=== PATIENT | female | born 1950 | race Caucasian/White ===

== ENCOUNTER 2022-08-06 08:42 | Observation (INO) | payer OTHER ==
[2022-08-06 08:55] LABS: Absolute Lymphocytes (CBC) 1.2 K/uL (0.7-4.9); Hematocrit 34.5 % (36.0-45.0); Lymphocytes % 14.1 % (15.3-44.8); MCV 88.4 fL (80-100); MPV 6.9 fL (7.6-11.3)
[2022-08-06 08:58] LABS: Specific Gravity 1.014 (1.005-1.030); Urine Bacteria <20 /HPF (<20); Urine Bilirubin NEGATIVE (Negative); Urine Blood Negative (Negative); Urine Clarity Turbid (Clear); Urine Color Light-Yellow (Yellow); Urine Glucose NEGATIVE (Negative); Urine Protein NEGATIVE (Negative); Urine Urobilinogen Normal (Normal); Urine WBC Clump Rare /HPF (None Seen); Urine pH 6.5 (5.0-7.0)
[2022-08-06 09:05] LABS: Protime INR 0.98
[2022-08-06] MEDS ORDERED: CEFAZOLIN SODIUM 2 GM/VIAL ONE (09:06)
[2022-08-06] MEDS ORDERED: Ringers Lactate 1,000 ML IV ONE ×3 (09:06→12:57)
[2022-08-06 09:11] LABS: Potassium 3.9 mmol/L (3.5-5.1)
[2022-08-06] MEDS ORDERED: KETAMINE HCL 500 MG/5 ML VIAL ONE (09:34)
[2022-08-06] MEDS ORDERED: propofoL 200 MG/20 ML VIAL IV ONE (09:34)
[2022-08-06] MEDS ORDERED: dexAMETHasone 10 MG/ML VIAL ONE (09:35)
[2022-08-06] MEDS ORDERED: NS 0.9% VIAL 20 ML ONE (09:35)
[2022-08-06] MEDS ORDERED: ROCURONIUM 50 MG/5 ML VIAL IV ONE (09:35)
[2022-08-06] MEDS ORDERED: FENTANYL CITR 100 MCG/2 ML ONE ×2 (09:35→12:53)
[2022-08-06] MEDS ORDERED: LIDOCAINE 2% MPF 5 ML VIAL ONE (09:35)
[2022-08-06] MEDS ORDERED: ONDANSETRON 4 MG/2 ML VIAL ONE (09:35)
[2022-08-06] MEDS ORDERED: MIDAZOLAM HCL 2 MG/2 ML INJ ONE (09:35)
[2022-08-06] MEDS ORDERED: LIDOCAINE 1% W/EPI 1:100,000 30 ML VIAL ONE (10:24)
[2022-08-06] MEDS ORDERED: NA CHLORIDE 0.9% 100 ML IV ONE (10:24)
[2022-08-06] MEDS ORDERED: CEFAZOLIN SODIUM 1 GM/VIAL ONE (10:24)
[2022-08-06] MEDS: CEFAZOLIN SODIUM 1 GM/VIAL ONE ×2 (11:05→11:16)
[2022-08-06] MEDS ORDERED: EPHEDRINE SULF 50 MG/ML VIAL ONE (11:12)
[2022-08-06] MEDS: VASOPRESSIN 20 UNIT/ML VIAL ONE ×2 (11:19→11:32)
[2022-08-06] MEDS ORDERED: TIZANIDINE 4 MG TABLET PO PRN (14:47)
[2022-08-06] MEDS ORDERED: MEPERIDINE HCL 25 MG/ML SYR IV PRN (14:48)
[2022-08-06] MEDS ORDERED: PROMETHAZINE INJ 25 MG/ML AMP IV PRN (14:48)
[2022-08-06] MEDS ORDERED: ACETAMINOPHEN 500 MG TAB PO PRN (14:48)
--- NOTE | 2022-08-06 14:57 | P.BOP ---
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
[2022-08-06] MEDS ORDERED: MORPHINE 4 MG/ML SYR ONE (15:22)
--- OUTSIDE RECORDS SUMMARY | 2022-08-06 15:47 | XMS REPORT | Clinical Summary ---
:1950 Author Organization [facility] MD [facility] Address [address] [place] [address] Care Team Providers Name Role Phone Jennifer Smith MD Primary Care Provider Stephanie Madden MD Primary Care Provider Allergies No known active allergies Medications Medication Sig Dispensed Refills Start Date End Date Status cranberry extract Take 36 mg by 0 Active (Ellura) 200 mg cap mouth daily. nitrofurantoin Take 100 mg by 0 Active (MACRODANTIN) 100 mg mouth daily. capsule thyroid (ARMOUR Take 60 mg by 0 Active THYROID) 60 mg tablet mouth daily. losartan (COZAAR) 100 Take 100 mg by 0 Active mg tablet mouth daily. tiZANidine (ZANAFLEX) 4 Take 4 mg by 0 Active MG capsule mouth 3 (three) times a day as needed for muscle spasms. phentermine (ADIPEX-P) Take 37.5 mg by 0 Active 37.5 mg tablet mouth every morning before breakfast. montelukast (SINGULAIR) Take 10 mg by 0 Active 10 mg tablet mouth daily as needed. estradiol (ESTRACE) 0.1 Insert 1 g into 0 Active mg/g (0.01%) vaginal the vagina 3 cream (three) times a week Wednesday, Wednesday and Wednesday. red yeast rice 600 mg Take 600 mg by 0 Active cap mouth every 6 (six) hours. omega-3 fatty Take 1 g by mouth 0 Active acids/fish oil (fish every 6 (six) oil-omega-3 fatty hours. acids) 300-1,000 mg capsule multivitamin/iron/folic Take 1 capsule by 0 Active acid (CENTRUM WOMEN mouth daily. ORAL) Lactobac 66-Bifido Take 1 capsule by 0 Active 4-S.thermo (Advanced mouth daily. Probiotic-14) 3 billion cell cap hyoscyamine sulfate Dissolve 1 tablet 12 tablet 0 03/19/2022 Active (ANASPAZ) 0.125 mg (0.125 mg) on the disintegrating tongue every 8 tabletIndications: Mass (eight) hours as of urinary bladder needed for cramping. sulfamethoxazole-trimet Take 1 tablet by 6 tablet 0 2 Active hoprim (BACTRIM DS) 800 mouth twice mg-160 mg per daily. tabletIndications: Mass of urinary bladder Active Problems Problem Noted Date Mass of urinary bladder 03/17/2022 Overview: Added automatically from request for tatiana hawkins [id number] Encounters Date Type Specialty Care Team Description 03/27/2022 Orders Only Urology Arpita, Mass of urinary bladder ASHTYN Coon (Primary Dx) 03/20/2022 Surgery Ambulatory Surgery Sarah, CYSTOURET HROSCOPY WITH MD Jennifer FULGURATION AND /OR TREATMENT OF ME DIUM LESION(S) (2.0 TO 5.0 CM 03/20/2022 Anesthesia Event Ambulatory Surgery Ashlie Abraham MD 03/20/2022 Hospital Encounter Ambulatory Surgery Raven Smith s of urinary bladder MD Jennifer 03/20/2022 Travel 03/19/2022 Anesthesia Event Anesthesiology Rubens Claudio, FADUMO 03/19/2022 Hospital Encounter Vascular Access and Sarah, Procedures MD Demario Rodriguez Anjanette, FADUMO 03/19/2022 Hospital Encounter Radiology Sarah, Mass of u rinary bladder MD Jennifer 03/19/2022 Office Visit Urology Sarah, Mass of urinary bladder MD Jennifer (Primary Dx) 03/19/2022 Clinical Support Garry Smith, Suspected C OVID-19 (Primary Dx); MD Jennifer Mass of urinary bladder Gaetano Majano MA 03/19/2022 POEM Appointments Anesthesiology Sarah, Pre op c ardiovascular examination (Primary Dx); MD Jennifer Mass of urinary bladder 03/19/2022 NPR Patient Access Services 03/19/2022 Travel 03/17/2022 Orders Only Urology Arpita Mass of urinary bladder ASHTYN Coon (Primary Dx) 02/26/2022 Travel after 08/06/2021 Surgical History Surgery Date Site/Laterality Comments [place] CYSTOURETHROSCOPY,FULGUR 03/20/2022 Genitalia/N/A Proc edure: CYSTOURETHROSCOPY 2-5 CM LESN WITH FULGURATION AND/OR TREATMENT OF MED IUM LESION(S) (2.0 TO 5.0 CM; Surgeon: Jennifer Smith MD; Locat ion: [facility] OR; Service: UROLOGY [place] PELVIC EXAMINATION W 03/20/2022 Bladder/N/A Procedur e: PELVIC EXAMINATION ANESTH UNDER ANESTHESIA ; Surgeon: Jennifer Smith MD; Locat ion: [facility] OR; Service: UROLOGY Social History Tobacco Use Types Packs/Day Years Used Date Never Assessed Sex Assigned at Date Recorded Not on file Job Start Date Occupation Industry Not on file Not on file Not on file Obstetrics History Last Filed Vital Signs Vital Sign Reading Time Taken Comments Blood Pressure 119/65 03/20/2022 9:30 AM CDT Pulse 80 03/20/2022 9:30 AM CDT Temperature 36.6 C (97.9 F) 03/20/2022 9:53 AM CDT Respiratory Rate 16 03/20/2022 9:30 AM CDT Oxygen Saturation 99% 03/20/2022 9:30 AM CDT Inhaled Oxygen Concentration - - Weight 103 kg (227 lb 1.2 oz) 03/19/2022 12:43 PM CDT Height 168 cm (5' 6.14") 03/19/2022 12:43 PM CDT Body Mass Index 36.49 03/19/2022 12:43 PM CDT Plan of Treatment Date Type Specialty Care Team Description 03/25/2023 Procedure visit Urology Jennifer Smith MD [address], [place] [address] (Wo rk) Health Maintenance Due Date Last Done Comments COVID-19 Vaccination (#1) 06/06/1951 Procedures Procedure Name Priority Date/Time Associated Comments Diagnosis POC GLUCOSE SCREEN Routine 03/20/2022 8:34 AM Res ults for this CDT procedure are i n the results section. PATHOLOGY SURGICAL Routine 03/20/2022 8:17 AM Mass of urinary Results for this INTERPRETATION CDT bladder procedure are in the results section. POC GLUCOSE SCREEN Routine 03/20/2022 7:56 AM Res ults for this CDT procedure are i n the results section. PELVIC EXAMINATION 03/20/2022 7:44 AM Mass of urinary UNDER ANESTHESIA CDT bladder Special Needs VS [address] [facility] CYSTOURETHROSCOPY WITH FULGURATION 03/20/2022 7: 44 AM CDT Mass of urinary bladder AND/OR TREATMENT OF MEDIUM LESION(S) (2.0 TO 5.0 CM Special Needs VS [address] [facility] [address] CHEST ABDOMEN PELVIS W Routine 03/19/2022 8:38 PM Mass of u rinary Results for this WO CONTRAST UROGRAM CDT bladder procedur e are in the results section. COVID-19 (SARS-COV-2) Routine 03/19/2022 3:52 PM Suspected Results for this PCR-ASYMPTOMATIC MC CDT COVID-19 procedur e are in the results section. TMP INTERPRETATION Routine 03/19/2022 3:28 PM Res ults for this ANTIBODY SCREEN NEGATIVE CDT pro cedure are in the results section. CLOT EXPIRATION DATE Routine 03/19/2022 3:28 PM R esults for this CDT procedure are i n the results section. ANTIBODY SCREEN Routine 03/19/2022 3:28 PM Mass of urinary Res ults for this CDT bladder procedure are i n the results section. ABORH Routine 03/19/2022 3:28 PM Mass of urinary Result s for this CDT bladder procedure are i n the results section. MANUAL DIFFERENTIAL Routine 03/19/2022 3:28 PM Mass of urinary Results for this CDT bladder procedure are i n the results section. Results CBC Routine 03/19/2022 3:28 PM Mass of urinary Result s for this CDT bladder procedure are i n the results section. FRACTIONATED BILIRUBIN Routine 03/19/2022 3:28 PM Mass of urin anastasiia Results for this CDT bladder procedure are i n the results section. TOTAL PROTEIN Routine 03/19/2022 3:28 PM Mass of urinary Resul ts for this CDT bladder procedure are i n the results section. ASPARTATE Routine 03/19/2022 3:28 PM Mass of urinary Result s for this AMINOTRANSFERASE CDT bladder procedure a re in the results section. ALANINE AMINOTRANSFERASE Routine 03/19/2022 3:28 PM Mass of ur inary Results for this CDT bladder procedure are i n the results section. ALKALINE PHOSPHATASE Routine 03/19/2022 3:28 PM Mass of urinar y Results for this CDT bladder procedure are i n the results section. ALBUMIN LEVEL Routine 03/19/2022 3:28 PM Mass of urinary Resul ts for this CDT bladder procedure are i n the results section. CALCIUM LEVEL TOTAL Routine 03/19/2022 3:28 PM Mass of urinary Results for this CDT bladder procedure are i n the results section. .GLOMERULAR FILTRATION Routine 03/19/2022 3:28 PM Mass of urin anastasiia Results for this RATE CDT bladder procedure are i n the results section. SERUM CREATININE Routine 03/19/2022 3:28 PM Mass of urinary Re sults for this CDT bladder procedure are i n the results section. ELECTROLYTE PANEL Routine 03/19/2022 3:28 PM Mass of urinary R esults for this CDT bladder procedure are i n the results section. BLOOD UREA NITROGEN Routine 03/19/2022 3:28 PM Mass of urinary Results for this CDT bladder procedure are i n the results section. GLUCOSE LEVEL Routine 03/19/2022 3:28 PM Mass of urinary Resul ts for this CDT bladder procedure are i n the results section. TYPE AND SCREEN Routine 03/19/2022 3:28 PM Mass of urinary CDT bladder PROTHROMBIN TIME Routine 03/19/2022 3:28 PM Mass of urinary Re sults for this CDT bladder procedure are i n the results section. APTT Routine 03/19/2022 3:28 PM Mass of urinary Result s for this CDT bladder procedure are i n the results section. MAGNESIUM LEVEL Routine 03/19/2022 3:28 PM Mass of urinary Res ults for this CDT bladder procedure are i n the results section. LACTATE DEHYDROGENASE Routine 03/19/2022 3:28 PM Mass of urina ry Results for this CDT bladder procedure are i n the results section. GUA Routine 03/19/2022 3:28 PM Mass of urinary Result s for this CDT bladder procedure are i n the results section. COMPLETE BLOOD COUNT W/ Routine 03/19/2022 3:28 PM Mass of uri nary DIFFERENTIAL CDT bladder COMPREHENSIVE METABOLIC Routine 03/19/2022 3:28 PM Mass of uri nary PANEL CDT bladder HEMOGLOBIN A1C Routine 03/19/2022 3:28 PM Mass of urinary Resu lts for this CDT bladder procedure are i n the results section. CONFIRM ABORH TYPE Routine 03/19/2022 3:21 PM Res ults for this CDT procedure are i n the results section. after 08/06/2021 Results POC Glucose Screen (03/20/2022 8:34 AM CDT)Only the most recent of2 results within the time period is included. athologist Signature POC Glucose 91 70 - 99 POC [facility] mg/dL Comment: Capillary blood samples, e.g. obtained b y fingerstick, may have inaccurate results in patients with decreased peripheral blood flow. Method description: All results are pete ured using Electrochemistry test methodology. The glucose in the sample mixes with the reagents on the test strip. The reaction produces an electric current. The amount of current produced is proportion al to the glucose concentration in the blood. PO Sample Type Capillary POC [facility] Performing Lab [facility] POC TELCO R Comment: [facility], [address] [place] [id number]; Lab Direct or: Dara Hodgson MD Specimen Anatomical Collection Method Collection Time Receive d Time (Source) Location / / Volume Laterality Blood 03/20/2022 8:34 AM 8:34 CDT AM CDT Jennifer Smith MD POCT ORDERABLES - DEVICE Performing Organization Address City/State/ZIP Code Phon e Number POC [facility] Pathology Surgical Interpretation (03/20/2022 8:17 AM CDT) Component Value Ref Test Analysis Performed Pathologis t Range Method Time At Signature Submitted Mass of urinary 03/23/2022 [facility] Clinical bladder [N32.89] 11:00 AM History CDT Diagnosis A: Right lateral bladder tumor, 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 11:00 AM signed by Luann Calderón MD on TN/FVN 03/23/2022 at 11:00 AM Gross A: 03/23/2022 [facility] Description Urinary bladder, right later al bladder tumor or 1: 0.8 x 0.5 x 0.5 cm pink-walker tissue fragment, entirely submitted in A1. JLA 11:00 AM CDT Drum Attendant(s) CCG 03/23/2022 [facility] 11:00 AM CDT Biomarker N/A 03/23/2022 [facility] Block(s) 11:00 AM CDT Disclaimer "Some tests 03/23/2022 [facility] reported here may 11:00 AM have been CDT developed and performance characteristics determined by [facility] Pathology and Laboratory Medicine. These tests have not been specifically cleared or approved by the U.S. Food and Drug Administration. If applicable, controls were reviewed and showed appropriate reactivity." Specimen Anatomical Collection Method Collection Time Receive d Time (Source) Location / / Volume Laterality Tissue (Urinary 03/20/2022 8:17 03/20/20 22 9:01 Bladder) AM CDT AM CDT Jennifer Smith MD LAB PATHOLOGY ORDERABLES Performing Organization Address City/State/ZIP Code Phon e Number [facility] [address] [address] Chest Abdomen Pelvis with and without Contrast Urogram (03/19/2022 8:38 PM CDT) Anatomical Region Laterality Modality Chest, Abdomen, Pelvis Computed Tomograp hy Specimen (Source) Anatomical Collection Method Collection Time Re ceived Time Location / / Volume Laterality 03/20/2022 7:16 AM CDT Impressions 03/20/2022 7:46 AM CDT 1. Small mural nodule, right lateral wal l of the urinary bladder, distal to the right UVJ. 2. No filling defects in the bilateral r enal collecting systems. 3. Nonspecific bilateral 2-3 mm micronod ules. 4., Otherwise no evidence for metastatic disease in the chest, abdomen or pelvis. Narrative 03/20/2022 7:46 AM CDT FULL RESULT: Examination: CT CHEST ABDOMEN PELVIS W W O CONTRAST UROGRAM on 03/19/2022 8:38 PM Clinical History: Mass of urinary bladde r Indication: bladder mass Cain simpson Baseline CT imaging Comparison: None. Technique: CT study of the abdomen and p dejon without intravenous contrast followed by a CT study of the chest, abdomen pelvis utilizing intravenous contrast. A CT urogram was performed. Findings: CHEST: Randomly scattered nonspecific 2-3 mm mi cronodules are present as seen marked in series 10 and more so on the right than on the left. On image 83 of series 10, there is a 5 m m calcified granuloma in the right lower lobe. No pleural effusions are present. No axillary, mediastinal or hilar adenop athy is seen. Minimal dense tissue is seen the thyroid gland and consistent with underlying hypothyroidism. A small hiatal hernia is seen. Multilevel degenerative-like bone change s are present. ABDOMEN and PELVIS: PRECONTRAST IMAGING: No hyperdense renal nodules are present. No calculi are seen in the kidneys, cour se of the ureters, or the urinary bladder. POSTCONTRAST IMAGING: On the first part of the study, distal t o the right UVJ, there is a focal enhancing 5 mm mural nodule in the right lateral wall of the urinary bladder. This mural nodule is also seen on delaye d axial image 282 of series 8, sagittal image 85 series 605, and coronal image 80 of series 604. No other intraluminal filling defects ar e seen in the urinary bladder or the bilateral urinary collecting systems. A 7 mm pocket of nondependent gas is pre sent in the urinary bladder, likely from recent instrumentation. No adenopathy or ascites are seen in the abdomen or pelvis. The kidneys demonstrate function without hydronephrosis and there is a small low dense foci in the left kidney consistent with cysts. The liver is at the upper limits are nor mal in size and fatty infiltrated. On image 35 series 5, there is a nonspec ific 8 mm low dense nidus in the left liver, and in the right lower lobe on image 47, likely cysts. A 23 mm rim calcified gallstone is present without changes of cholecystitis. The spleen normal in size and contains a 13 mm enhancing nodule in the upper pole consistent with a hemangioma. The pancreas and adrenal glands appear n ormal. The uterus and cervix have been resected . The ovaries cannot be identified. A moderate fecal load is present especia lly in the right colon. Metal artifact is present from the multi level postoperative changes involving the lumbosacral spine. Superimposed multilevel degenerative-like bone changes are present. Procedure Note Martin Avery MD - 03/20/2022Forma tting of this note might be different from the original. FULL RESULT: Examination: CT CHEST ABDOMEN PELVIS W W O CONTRAST UROGRAM on 03/19/2022 8:38 PM Clinical History: Mass of urinary bladde r Indication: bladder mass Cain MendezLou Aguilar calvin Baseline CT imaging Comparison: None. Technique: CT study of the abdomen and p dejon without intravenous contrast followed by a CT study of the chest, abdomen pelvis utilizing intravenous contrast. A CT urogram was performed. Findings: CHEST: Randomly scattered nonspecific 2-3 mm mi cronodules are present as seen marked in series 10 and more so on the right than on the left. On image 83 of series 10, there is a 5 m m calcified granuloma in the right lower lobe. No pleural effusions are present. No axillary, mediastinal or hilar adenop athy is seen. Minimal dense tissue is seen the thyroid gland and consistent with underlying hypothyroidism. A small hiatal hernia is seen. Multilevel degenerative-like bone change s are present. ABDOMEN and PELVIS: PRECONTRAST IMAGING: No hyperdense renal nodules are present. No calculi are seen in the kidneys, cour se of the ureters, or the urinary bladder. POSTCONTRAST IMAGING: On the first part of the study, distal t o the right UVJ, there is a focal enhancing 5 mm mural nodule in the right lateral wall of the urinary bladder. This mural nodule is also seen on delaye d axial image 282 of series 8, sagittal image 85 series 605, and coronal image 80 of series 604. No other intraluminal filling defects ar e seen in the urinary bladder or the bilateral urinary collecting systems. A 7 mm pocket of nondependent gas is pre sent in the urinary bladder, likely from recent instrumentation. No adenopathy or ascites are seen in the abdomen or pelvis. The kidneys demonstrate function without hydronephrosis and there is a small low dense foci in the left kidney consistent with cysts. The liver is at the upper limits are nor mal in size and fatty infiltrated. On image 35 series 5, there is a nonspec ific 8 mm low dense nidus in the left liver, and in the right lower lobe on image 47, likely cysts. A 23 mm rim calcified gallstone is present without changes of cholecystitis. The spleen normal in size and contains a 13 mm enhancing nodule in the upper pole consistent with a hemangioma. The pancreas and adrenal glands appear n ormal. The uterus and cervix have been resected . The ovaries cannot be identified. A moderate fecal load is present especia lly in the right colon. Metal artifact is present from the multi level postoperative changes involving the lumbosacral spine. Superimposed multilevel degenerative-like bone changes are present. IMPRESSION: 1. Small mural nodule, right lateral wal l of the urinary bladder, distal to the right UVJ. 2. No filling defects in the bilateral r enal collecting systems. 3. Nonspecific bilateral 2-3 mm micronod ules. 4., Otherwise no evidence for metastatic disease in the chest, abdomen or pelvis. Jennifer Smith MD IMG CT ORDERABLES COVID-19 (SARS-CoV-2) PCR-Asymptomatic (03/19/2022 3:52 PM CDT) [facility] Method Time Signature COVID19 (SARS Not Detected Not Detected [place] CoVZach2) [facility] Comment: This test is a qualitative reverse-trans criptase polymerase chain reaction (RT- PCR) developed for the [employer] ZEN 6800 system and intended for qualitative detection of SARS CoV-2 RNA in nasopharyngeal a nd oropharyngeal swab specimens collecte d from any individuals, including those suspected o f COVID-19 by their healthcare provider, and those without symptoms or other reasons to suspect COVID-19. A fact sheet for patients provided by the exhibit specialist ( [employer]) can be rev iewed at: https://www.fda.gov/media/997019/downloa d. A fact sheet for Health Care providers is provided by the exhibit specialist ([employer]) and can be reviewed at: https://www.fda.gov/media/732217/download Results must be interpreted within the c ontext of all relevant clinical and laboratory findings and should not form the sole basis for a diagnosis or treatment decision. Positive results do not rule out bacterial infection or co- infection with other viruses. Negative results do not rule ou t SARS-CoV-2 and must be combined with clinical observations, patient history, and/or epidemiological information. "Presumptive Positive" results are due t o partial amplification of SARS-CoV-2 targets and indicates low amounts of virus present in the specimen at or near the limit of detection. Regardless, individuals with "Presumptive Positive" results should be managed per institutional guidelines as individuals positive for SARS-CoV-2 virus, including use of appropriate infection control protocols. Internal controls are included to assess for possible amplification inhibitors. If inhibition is detected, testing is repeated and if inhibition is confirmed the specimen is resulted as "Invalid". When an "Invalid" result occurs, it is recomm ended to wait 3 days before submitting a new spec imen for testing if clinically indicated. This assay has been approved by the FDA for use only under Emergency Use Authorization (EUA) in laboratories that have been CLIA-certified to perform moderate-complexity and high-complexity tests. The performance characteristics of this assay were verified by the Microbiology Laboratory at [facility], CLIA Accreditation #: [id number] and CAP Accreditation #: [id number]. COVID19 SARS Source [employer] [place] MD LOZANO [facility] COVID19 SARS Indication Pre-OR Procedure [facility] Specimen (Source) Anatomical Collection Method Collection Time Re ceived Time Location / / Volume Laterality Nasopharyngeal Swab 03/19/2022 3:52 03/19 PM CDT 5:31 PM CDT Jennifer Smith MD MICROBIOLOGY - GENERAL ORDER BENNIE Performing Organization Address City/[facility] Phon e Number [facility] Unless otherwise noted, [address] all lab tests performed by: Division of Pathology and Laboratory Medicine [address] [place] [address] (ABNORMAL) .Serum Creatinine (03/19/2022 3:28 PM CDT) P athologist Signature Creatinine 1.12 (H) 0.51 - 0.95 [facility] mg/dL [facility] Specimen Anatomical Collection Method Collection Time Receive d Time (Source) Location / / Volume Laterality Blood 03/19/2022 3:28 PM 2 4:29 CDT PM CDT Narrative [facility] - 2 4:29 PM CDT Please schedule AFTER visit with Dr. Quinton ruano Jennifer Smith MD LAB BLOOD ORDERABLES Performing Organization Address City/[facility] Phon e Number [facility] Unless otherwise noted, [address] all lab tests performed by: Division of Pathology and Laboratory Medicine [address] [place] [address] (ABNORMAL) .CBC (03/19/2022 3:28 PM CDT) P athologist Signature WBC 15.9 (H) 4.0 - 11.0 [facility] RBC 4.20 4.00 - [place] MD 5.50 M/[facility] Hgb 12.3 12.0 - [place] MD 16.0 gm/dL [facility] Hct 38.5 37.0 - [place] MD 47.0 % [facility] MCV 92 82 - 98 [facility] MCH 29.3 27.0 - [place] MD 31.0 pg [facility] MCHC 31.9 31.0 - [place] MD 36.0 gm/dL [facility] RDW-SD 42.0 35.1 - [facility] [[email or web address]] 46.3 [facility] RDW-CV 12.8 12.0 - [facility] [[email or web address]] 15.5 % [facility] Platelet count 444 (H) 140 - 440 [facility] MPV 9.4 4.0 - 10.4 [facility] INRBC 0.0 <=0.0 % [facility] Comment: The INRBC (instrument NRBC) value reflec ts the enumeration of nucleated red blood cells contained i n a 200uL sample of whole blood analyzed by the instrumen t. This value may differ from the NRBC value reported in a manual differential, which is based on a 100 cell differentia l. Specimen Anatomical Collection Method Collection Time Receive d Time (Source) Location / / Volume Laterality Blood 03/19/2022 3:28 PM 2 4:23 CDT PM CDT Narrative [facility] - 2 4:23 PM CDT Please schedule AFTER visit with Dr. Quinton ruano Jennifer Smith MD LAB BLOOD ORDERABLES Performing Organization Address City/State/ZIP Code Phon e Number [facility] Unless otherwise noted, [place] [address] [place] all lab tests performed by: Division of Pathology and Laboratory Medicine [address] [place] [address] [place] Expiration Date (03/19/2022 3:28 PM CDT) Patholo gist Method Time Signature T & S 03/22/2022 [facility] [[email or web address]] Expiration [facility] Specimen Anatomical Collection Method Collection Time Receive d Time (Source) Location / / Volume Laterality Blood 03/19/2022 3:28 PM 2 4:28 CDT PM CDT Jennifer Smith MD BLOOD BANK TEST ORDERABLES Performing Organization Address City/State/ZIP Code Phon e Number [place] [facility] Unless otherwise noted, [place] [address] CENTER all lab tests performed by: Division of Pathology and Laboratory Medicine [address] (ABNORMAL) Glomerular Filtration Rate (03/19/2022 3:28 PM CDT) P athologist Signature eGFR-AA 58 (L) >=60 [place] MD MARIA mL/min/1.73 [facility] sq. m Comment: Normal eGFR: >= 60 mL/min/1.73 m2 Note: The eGFR is calculated using the C KD-EPI equation. The eGFR declines with age. eGFR <60 mL/min/1.73 m2 is considered as "decreased". This equation should only be used for patients 18 and older. According to the National Kidney Found[employer] ion's Kidney Disease Outcome Quality Initiative (KDOQI) classification and 2012 Kidney Disease Improving Global Outcomes (KDIGO) Clinical Practice Guideline, the stage of CKD should be categorized based on estimated GFR. Stage Description GFR mL/min/1. 73 m2 1 Normal or high GFR >=90 2 Mildly decreased GFR 60-89 3a Mildly to moderately decreased GFR 45-59 3b Moderately to severely decreased GFR 30-44 4 Severely decreased GFR 15-29 5 Kidney failure <15 eGFR-HUBERT 50 (L) >=60 mL/min/1.73 sq. m [place] MD Elizabeth [facility] Comment: Normal eGFR: >= 60 mL/min/1.73 m2 Note: The eGFR is calculated using the C KD-EPI equation. The eGFR declines with age. eGFR <60 mL/min/1.73 m2 is considered as "decreased". This equation should only be used for patients 18 and older. According to the National Kidney [employer] ion's Kidney Disease Outcome Quality Initiative (KDOQI) classification and 2012 Kidney Disease Improving Global Outcomes (KDIGO) Clinical Practice Guideline, the stage of CKD should be categorized based on estimated GFR. Stage Description GFR mL/min/1. 73 m2 1 Normal or high GFR >=90 2 Mildly decreased GFR 60-89 3a Mildly to moderately decreased GFR 45-59 3b Moderately to severely decreased GFR 30-44 4 Severely decreased GFR 15-29 5 Kidney failure <15 Specimen Anatomical Collection Method Collection Time Receive d Time (Source) Location / / Volume Laterality Blood 03/19/2022 3:28 PM 2 4:29 CDT PM CDT Narrative [facility] - 2 4:30 PM CDT Please schedule AFTER visit with Dr. Quinton ruano Jennifer Smith MD LAB BLOOD ORDERABLES Performing Organization Address City/State/ZIP Code Phon e Number [facility] Unless otherwise noted, [address] all lab tests performed by: Division of Pathology and Laboratory Medicine [address] [place] Fractionated Bilirubin (03/19/2022 3:28 PM CDT) P athologist Signature Bili Total 0.9 <=1.2 mg/dL [facility] Comment: Indocyanine Green (ICG) may cause falsel y elevated bilirubin results. Total and direct bilirubin must not be measured from samples containing indocyanine green. False elevation of total bilirubin can b e seen in patients with IgG concentrations above 28 g/L. Bili Direct 0.2 <=0.3 mg/dL [facility] Comment: Indocyanine Green (ICG) may cau se falsely elevated bilirubin results. Total and direct bilirubin must not be measure d from samples containing indocyanine green. Bili Indirect 0.7 0.0 - 0.9 mg/dL [place] [facility] Specimen Anatomical Collection Method Collection Time Receive d Time (Source) Location / / Volume Laterality Blood 03/19/2022 3:28 03/19/2022 4:29 PM CDT PM CDT Narrative [facility] - 2 4:30 PM CDT Please schedule AFTER visit with Dr. Quinton ruano Jennifer Smith MD LAB BLOOD ORDERABLES Performing Organization Address City/State/ZIP Code Phon e Number [facility] Unless otherwise noted, [address] all lab tests performed by: Division of Pathology and Laboratory Medicine [address] G Urinalysis (03/19/2022 3:28 PM CDT) Patholo gist Method Time Signature UA Color Straw Straw-Yel [facility] UA Appear Clear Clear [facility] UA Glucose NEG NEG mg/dL [facility] UA Bili NEG NEG [facility] UA Ketones NEG NEG mg/dL [facility] UA Spec Grav 1.012 1.003 - [facility] [[email or web address]] 1.035 [facility] UA Blood NEG NEG [facility] UA pH 6.0 5.0 - 9.0 [facility] UA Protein NEG NEG mg/dL [facility] UA Urobilinogen NEG NEG [facility] UA Nitrite NEG NEG [facility] UA Leuk Est NEG NEG [facility] UA Comment See Comment [facility] Comment: No microscopic exam performed, physiochemical findings are negative Specimen Anatomical Collection Method Collection Time Receive d Time (Source) Location / / Volume Laterality Urine 03/19/2022 3:28 PM 2 3:55 CDT PM CDT Narrative [facility] - 2 4:28 PM CDT Please schedule AFTER visit with Dr. Quinton ruano Jennifer Smith MD URINE ORDERABLES Performing Organization Address City/State/ZIP Code Phon e Number [facility] CANCER Unless otherwise noted, [address] all lab tests performed by: Division of Pathology and Laboratory Medicine [address] [place] [address] [place] TMP Interpretation Antibody Screen Negative (03/19/2022 3:28 PM CDT) [facility] Method Time Signature TMP Auto Neg At the [facility] patient plasma shows no evidence of RBC alloantibodi es. Comment: MD Zach BRICE [id number] Dictated by: MD Zach BRICE 1200 [id number] Dictated Date/Time: 03.20.2022 8:21 AM C DT Transcribed Date/Time: 03.20.2022 8:21 AM CDT Electronically Signed By: MD Zach TONEY [id number] on 03.20.2022 8:21 AM C Specimen Anatomical Collection Method Collection Time Receive d Time (Source) Location / / Volume Laterality Blood 03/19/2022 3:28 PM 2 4:28 CDT PM CDT Jennifer Smith MD BLOOD BANK TEST ORDERABLES Performing Organization Address City/[facility] Code Phon e Number [facility]CER Unless otherwise noted, [address] all lab tests performed by: Division of Pathology and Laboratory Medicine [address] [place] aPTT (03/19/2022 3:28 PM CDT) P athologist Signature aPTT 29.3 22.8 - 34.2 [facility]) [facility] Specimen Anatomical Collection Method Collection Time Receive d Time (Source) Location / / Volume Laterality Blood 03/19/2022 3:28 PM 2 4:00 CDT PM CDT Narrative [facility] - 2 4:32 PM CDT Please schedule AFTER visit with Dr. Smith This lab cannot be scheduled at the [facility] locations due to collection/proccessing restrictions: [facility] DIAG LAB CTR and [facility] DI[facility] CTR. Jennifer Smiht MD LAB BLOOD ORDERABLES Performing Organization Address [facility] Code Phon e Number [facility] CANCER Unless otherwise noted, [address] all lab tests performed by: Division of Pathology and Laboratory Medicine [address] ABORh (03/19/2022 3:28 PM CDT) athologist Signature ABORh. B POS [facility] Specimen Anatomical Collection Method Collection Time Receive d Time (Source) Location / / Volume Laterality Blood 03/19/2022 3:28 PM 2 4:28 CDT PM CDT Narrative [facility] - 2 5:24 PM CDT Please schedule AFTER visit with Dr. Quinton ruano Jennifer Smith MD BLOOD BANK TEST ORDERABLES Performing Organization Address City/[facility]/ZIP Code Phon e Number [facility] CANCER Unless otherwise noted, [address] all lab tests performed by: Division of Pathology and Laboratory Medicine [address] (ABNORMAL) Differential (03/19/2022 3:28 PM CDT) athologist Signature Neutrophil % 74.2 (H) 42.0 - [facility] 66.0 % [facility] CENTER Lymphocyte % 14.7 (L) 24.0 - [facility] 44.0 % [facility]ENTER Monocyte % 7.5 (H) 2.0 - 7.0 [facility] Eosinophil % 2.5 1.0 - 4.0 [facility] Basophil % 0.5 0.0 - 1.0 [facility] IGRE % 0.6 (H) 0.0 - 0.4 [facility] Comment: IGRE % count includes Metamyelo cytes, Myelocytes, and Promyelocytes. Neutrophil Abs 11.81 (H) 1.70 - 7.30 K/uL [facility] Lymphocyte Abs 2.34 1.00 - 4.80 K/uL [facility] Monocyte Abs 1.19 (H) 0.08 - 0.70 K/uL [facility] Eosinophil Abs 0.40 0.04 - 0.40 K/uL [facility] Basophil Abs 0.08 0.00 - 0.10 K/uL [facility] IG Abs 0.09 (H) 0.00 - 0.04 K/uL [facility] [[email or web address]] [facility] Specimen Anatomical Collection Method Collection Time Receive d Time (Source) Location / / Volume Laterality Blood 03/19/2022 3:28 PM 2 4:23 CDT PM CDT Narrative [facility] - 2 4:23 PM CDT Please schedule AFTER visit with Dr. Quinton ruano Jennifer Smith MD LAB BLOOD ORDERABLES Performing Organization Address City/State/ZIP Code Phon e Number [facility] CANCER Unless otherwise noted, [place] [address] [place] all lab tests performed by: Division of Pathology and Laboratory Medicine [address] [place] [address] Prothrombin Time with INR (03/19/2022 3:28 PM CDT) athologist Signature PT 12.7 11.5 - 13.9 [facility] second(s) CANCER CENTER INR 1.04 0.90 - 1.10 [facility] Specimen Anatomical Collection Method Collection Time Receive d Time (Source) Location / / Volume Laterality Blood 03/19/2022 3:28 PM 2 4:00 CDT PM CDT Narrative [facility] - 2 4:29 PM CDT Please schedule AFTER visit with Dr. Smith This lab cannot be scheduled at the [facility] locations due to collection/proccessing restrictions: [facility] DIAG [facility] and [facility]. Jennifer Smith MD LAB BLOOD ORDERABLES Performing Organization Address City/State/ZIP Code Phon e Number [facility] CANCER Unless otherwise noted, [address] all lab tests performed by: Division of Pathology and Laboratory Medicine [address] [place], [place] [address] Antibody Screen (03/19/2022 3:28 PM CDT) P athologist Signature ABSC. Negative ABSC [facility] Specimen Anatomical Collection Method Collection Time Receive d Time (Source) Location / / Volume Laterality Blood 03/19/2022 3:28 PM 2 4:28 CDT PM CDT Narrative [facility] - 2 5:24 PM CDT Please schedule AFTER visit with Dr. Quinton ruano Jennifer Smith MD BLOOD BANK TEST ORDERABLES Performing Organization Address City/[facility]/ZIP Code Phon e Number [facility] Unless otherwise noted, [address] all lab tests performed by: Division of Pathology and Laboratory Medicine [address] [place], [place] [address] (ABNORMAL) BUN (03/19/2022 3:28 PM CDT) P athologist Signature BUN 31 (H) 6 - 23 [facility] mg/dL [facility] Specimen Anatomical Collection Method Collection Time Receive d Time (Source) Location / / Volume Laterality Blood 03/19/2022 3:28 PM 2 4:29 CDT PM CDT Narrative [facility] - 2 4:29 PM CDT Please schedule AFTER visit with Dr. Quinton ruano Jennifer Smith MD LAB BLOOD ORDERABLES Performing Organization Address City/State/ZIP Code Phon e Number [facility] Unless otherwise noted, [address] all lab tests performed by: Division of Pathology and Laboratory Medicine [facility] [place] ALT (03/19/2022 3:28 PM CDT) P athologist Signature ALT 15 <=33 U/L [facility] Specimen Anatomical Collection Method Collection Time Receive d Time (Source) Location / / Volume Laterality Blood 03/19/2022 3:28 PM 2 4:29 CDT PM CDT Narrative [facility] - 2 4:29 PM CDT Please schedule AFTER visit with Dr. Quinton ruano Jennifer Smith MD LAB BLOOD ORDERABLES Performing Organization Address City/State/ZIP Code Phon e Number [facility] CANCER Unless otherwise noted, [address] all lab tests performed by: Division of Pathology and Laboratory Medicine [facility] Aspartate Aminotransferase (03/19/2022 3:28 PM CDT) athologist Signature AST 17 <=32 U/L [facility] Specimen Anatomical Collection Method Collection Time Receive d Time (Source) Location / / Volume Laterality Blood 03/19/2022 3:28 PM 2 4:29 CDT PM CDT Narrative [facility] - 2 4:29 PM CDT Please schedule AFTER visit with Dr. Quinton ruano Jennifer Smith MD LAB BLOOD ORDERABLES Performing Organization Address City/[facility]/ZIP Code Phon e Number [facility] CANCER Unless otherwise noted, [address] all lab tests performed by: Division of Pathology and Laboratory Medicine [address] [place], [place] [address]d Total Protein (03/19/2022 3:28 PM CDT) P athologist Signature Total Protein 8.2 6.4 - 8.3 [facility] g/dL [facility] Specimen Anatomical Collection Method Collection Time Receive d Time (Source) Location / / Volume Laterality Blood 03/19/2022 3:28 PM 2 4:29 CDT PM CDT Narrative [facility] - 2 4:29 PM CDT Please schedule AFTER visit with Dr. Quinton ruano Jennifer Smith MD LAB BLOOD ORDERABLES Performing Organization Address City/State/ZIP Code Phon e Number [facility] CANCER Unless otherwise noted, [address] all lab tests performed by: Division of Pathology and Laboratory Medicine [address] [place] Alkaline Phosphatase (03/19/2022 3:28 PM CDT) athologist [facility] Alk Phos 81 35 - 104 [facility] U/L [facility] Specimen Anatomical Collection Method Collection Time Receive d Time (Source) Location / / Volume Laterality Blood 03/19/2022 3:28 03/19/2022 4:29 PM CDT PM CDT Narrative [facility] - 2 4:29 PM CDT Please schedule AFTER visit with Dr. Quinton ruano Jennifer Smith MD LAB BLOOD ORDERABLES Performing Organization Address City/State/ZIP Code Phon e Number [facility] Unless otherwise noted, [address] all lab tests performed by: Division of Pathology and Laboratory Medicine [address] [place] Magnesium Level (03/19/2022 3:28 PM CDT) [facility] Magnesium 2.3 1.6 - 2.6 [facility] mg/dL [facility] Specimen Anatomical Collection Method Collection Time Receive d Time (Source) Location / / Volume Laterality Blood 03/19/2022 3:28 PM 2 4:29 CDT PM CDT Narrative [facility] - 2 4:29 PM CDT Please schedule AFTER visit with Dr. Quinton ruano Jennifer Smith MD LAB BLOOD ORDERABLES Performing Organization Address City/State/ZIP Code Phon e Number [facility] Unless otherwise noted, [address] all lab tests performed by: Division of Pathology and Laboratory Medicine [address] LDH (03/19/2022 3:28 PM CDT) athologist [facility] LDH 175 135 - 214 [facility] U/L [facility] Comment: Results greater than 1651 U/L m ay not be reliable due to matrix effect with extended dilution as it exceeds the manu facturer's recommended limit. Caution should be exercised when interpreting such valu es and done in conjunction with clinical context. Specimen Anatomical Collection Method Collection Time Receive d Time (Source) Location / / Volume Laterality Blood 03/19/2022 3:28 PM 2 4:29 CDT PM CDT Narrative [facility] - 2 4:29 PM CDT Please schedule AFTER visit with Dr. Quinton ruano Jennifer Smith MD LAB BLOOD ORDERABLES Performing Organization Address City/[facility] Phon e Number [facility] Unless otherwise noted, [address] all lab tests performed by: Division of Pathology and Laboratory Medicine Cee Bower (ABNORMAL) Hemoglobin A1c (03/19/2022 3:28 PM CDT) P athologist Signature A1C 6.0 (H) 4.3 - 5.6 % [facility] Comment: HbA1c values >=6.5% are diagnostic of di abetes mellitus. Diagnosis should be confirmed by repeat testing. Therapeutic Action suggested: >8.0% HbA1 c; Goal of therapy: <7.0% HbA1c Specimen Anatomical Collection Method Collection Time Receive d Time (Source) Location / / Volume Laterality Blood 03/19/2022 3:28 PM 2 3:57 CDT PM CDT Narrative [facility] - 2 4:11 PM CDT Please schedule AFTER visit with Dr. Quinton ruano Jennifer Smith MD LAB BLOOD ORDERABLES Performing Organization Address City/[facility] e Number [facility] Unless otherwise noted, [address] all lab tests performed by: Division of Pathology and Laboratory Medicine Cee Bower (ABNORMAL) Glucose Level (03/19/2022 3:28 PM CDT) P athologist Signature Glucose Level 103 (H) 70 - 99 [facility] mg/dL [facility] Comment: Effective 05/06/16, the glucose reference intervals have been updated based on [place] Diabetes [employer] guidelines (Standards of Medical Care in Diabetes 2016. Diabetes Care 2016; 39: S13-S22). Fasting blood glucose: Normal: 70-99 mg/dL Impaired fasting glucose (increased risk for diabetes or pre-diabetes): 100- 125 mg/dL Diabetes mellitus: >/=126 mg/dL Random blood glucose: Normal: 70-199 mg/dL Note: Random glucose >100 mg/dL is assoc iated with increased risk for diabetes Specimen Anatomical Collection Method Collection Time Receive d Time (Source) Location / / Volume Laterality Blood 03/19/2022 3:28 PM 2 4:29 CDT PM CDT Narrative [facility] - 2 4:29 PM CDT Please schedule AFTER visit with Dr. Quinton ruano Jennifer Smith MD LAB BLOOD ORDERABLES Performing Organization Address City/State/ZIP Code Phon e Number [facility] CANCER Unless otherwise noted, [address] all lab tests performed by: Division of Pathology and Laboratory Medicine [address] Calcium Level (03/19/2022 3:28 PM CDT) P athologist Signature Calcium Lvl 9.9 8.4 - 10.2 [facility] mg/dL [facility] Specimen Anatomical Collection Method Collection Time Receive d Time (Source) Location / / Volume Laterality Blood 03/19/2022 3:28 PM 2 4:29 CDT PM CDT Narrative [facility] - 2 4:29 PM CDT Please schedule AFTER visit with Dr. Quinton ruano Jennifer Smith MD LAB BLOOD ORDERABLES Performing Organization Address City/State/ZIP Code Phon e Number [facility] CANCER Unless otherwise noted, [address] all lab tests performed by: Division of Pathology and Laboratory Medicine [address] Albumin Level (03/19/2022 3:28 PM CDT) P athologist Signature Albumin Lvl 5.0 3.5 - 5.2 [facility] gm/dL [facility] Specimen Anatomical Collection Method Collection Time Receive d Time (Source) Location / / Volume Laterality Blood 03/19/2022 3:28 PM 2 4:29 CDT PM CDT Narrative [facility] - 2 4:29 PM CDT Please schedule AFTER visit with Dr. Quinton ruano Jennifer Smith MD LAB BLOOD ORDERABLES Performing Organization Address City/State/ZIP Code Phon e Number [facility] Unless otherwise noted, [address] all lab tests performed by: Division of Pathology and Laboratory Medicine [address] (ABNORMAL) Electrolyte Panel (03/19/2022 3:28 PM CDT) P athologist Signature Sodium Lvl 135 (L) 136 - 145 [facility] mEq/L [facility] Potassium Lvl 4.7 3.5 - 5.1 [facility] mEq/L [facility] Chloride 97 (L) 98 - 107 [facility] mEq/L [facility] CO2 26 22 - 29 [facility] mEq/L [facility] Anion Gap 12 4 - 14 [facility] mEq/L [facility] Specimen Anatomical Collection Method Collection Time Receive d Time (Source) Location / / Volume Laterality Blood 03/19/2022 3:28 PM 2 4:29 CDT PM CDT Narrative [facility] - 2 4:29 PM CDT Please schedule AFTER visit with Dr. Quinton ruano Jennifer Smith MD LAB BLOOD ORDERABLES Performing Organization Address City/State/ZIP Code Phon e Number [facility] Unless otherwise noted, [address] all lab tests performed by: Division of Pathology and Laboratory Medicine [facility] [place] Confirm ABORh (03/19/2022 3:21 PM CDT) athologist Signature ABORh Confirm. B POS [facility] Specimen Anatomical Collection Method Collection Time Receive d Time (Source) Location / / Volume Laterality Blood 03/19/2022 3:21 PM 2 4:28 CDT PM CDT Jennifer Smith MD BLOOD BANK TEST ORDERABLES Performing Organization Address City/State/ZIP Code Phon e Number [facility] CANCER Unless otherwise noted, [address] all lab tests performed by: Division of Pathology and Laboratory Medicine [facility] [place] after 08/06/2021 Insurance Payer Benefit Plan / Subscriber ID Effective Dates Phone Addre ss Type Group MEDICARE MEDICARE PART [id number] 2016-Karie [phone] HELEN Aguilar Medicare A AND B t 2 SOLUTIONS [address] [place] [address] GENERIC GENERIC [id number] Effective for [phone] [address] 568 PPO MEDICARE all dates 3 [place] [employer] [address] ONLY Advance Directives Code Status Date Activated Date Inactivated Comments Full Code 03/20/2022 10:25 AM 03/20/2022 4:30 PM Care Teams Coil Builder Relationship Specialty Start Date End Date Jennifer Smith MD PCP - General Urology 03/19/22 03/26/[address] [place] [id number] Stephanie Madden MD PCP - General Obstetrics/Gynecology 03/27/[address] [id number]
--- OUTSIDE RECORDS SUMMARY | 2022-08-06 15:48 | XMS REPORT | Continuity of Care Document ---
:1950 Author Organization [facility] t Address [address] [place] [address] Care Team Providers Name Role Phone Keron Landry MD Primary Care Physician Stephanie Madden Attending Clinician Unavailable SYSTEM, PROVIDER NOT IN Attending Clinician Unavailable John Paul Bernstein Attending Clinician Unavailable Stephanie Madden Attending Clinician Jammie Forrest Attending Clinician Unavailable Keron Landry MD Attending Clinician Ashlie Abraham MD Attending Clinician Rubens Claudio RN Attending Clinician Unavailable Inna Hanks RN Attending Clinician Gaetano Majano MA Attending Clinician Unavailable Glenn Attending Clinician Unavailable Thiago Rich Attending Clinician [phone] Dawit Attending Clinician Unavailable Angel Lubin Attending Clinician UNDEFINED Admitting Clinician Unavailable KERON LANDRY Admitting Clinician Unavailable Glenn Admitting Clinician Unavailable Dawit Admitting Clinician Unavailable Payers Payer Name Policy Type Policy Number Effective Date Expiration Date S ource [place]: [id number] 2016 [place] 00:00:00 [facility] [id number] INSURANCE (INDEMNITY) Problems Condition Condition Condition Status Onset Resolution Last Treating Co mments Source Name Details Category Date Date Treatment Clinician Date Mass of [place] of Disease Active Overview: Univ ers urinary urinary 03-17 Formattin ity o f bladder bladder 00:00: g of this 00 note MD might be Anderso different n from the Cancer original. Center Added automatic ally from request for surgery [id number] Encounter Encounter Problem 2021-03-20 Memoria for for 23:37:38 l screening screening Herm meryl mammogram mammogram for for malignant malignant neoplasm neoplasm of breast of breast 03/20/2021 MARIE Reese Z12.31 - Z12.31 - Diagnosis Active 2022-08-06 Memoria ENCNTR ENCNTR 09:06:00 l SCREEN SCREEN [place] MAMMOGRAM MAMMOGRAM FOR MA FOR MA Active MARIE Reese History of Past Illness Condition Condition Condition Status Onset Resolution Last Treating Co mments Source Name Details Category Date Date Treatment Clinician Date Other Other Problem 2019-05-22 2019-05-22 M emoria specified specified 11-05 11:15:58 11:15:58 l disorders disorders 05:51: Herm meryl of breast of breast 53 11/05/2018 05/22/2019 PAULINO Reese Allergies, Adverse Reactions, Alerts Allergy Allergy Status Severity Reaction(s) Onset Inactive Treating Comm ents Source Name Type Date Date Clinician No Known DA Active U 0 [facility] 02[facility]18 [place] [facility] No Known DA Active U 0 [facility] 02-18 [place] Allergie 00:00: d s [address] [facility] No Known DA Active U [facility] 05[facility]11 [place] [facility] 00:[facility] No Known DA Active U [facility] 05[facility]11 [place] [facility] 00:[facility]ope [facility] Social History Social Habit Start Date Stop Date Quantity Comments Source Sex Assigned At [birth year] [facility] [place] [facility]:00:00 00:00:00 MD Garrido [facility] Medications Ordered Filled Start Stop Current Ordering Indication Dosage Frequency Signature Comments Components Source Medication Medication Date Date Medication? Clinician (SIG) Name Name cranberry 2022-0 Yes 36mg Take 36 mg Un marguerite extract 6-10 by mouth ity of (Ellura) 14:25: daily. [place] 200 mg cap 16 MD Jerome roche [facility] nitrofurant Yes 100mg Take 100 U nivers oin 6-10 mg by ity of (MACRODANTI 14:25: mouth [place] N) 100 mg 16 daily. capsule Jerome [facility] thyroid Yes 60mg Take 60 mg Univ ers (ARMOUR 6-10 by mouth ity of THYROID) 60 14:25: [place]. [place] mg tablet 16 MD Jerome roche [facility] losartan Yes 100mg Take 100 Univ ers (COZAAR) 6-10 mg by ity of 100 mg 14:25: mouth [place] tablet 16 daily. MD Jerome roche [facility] tiZANidine Yes 4mg Take 4 mg Un marguerite (ZANAFLEX) 6-10 by mouth 3 ity of 4 MG 14:25: (three) [place] capsule 16 times a MD day as Anderso needed for n muscle Cancer spasms. [facility] phentermine Yes 37.5mg Take 37.5 Univers (ADIPEX-P) 6-10 mg by ity of 37.5 mg 14:25: mouth [place] tablet 16 every MD morning Anderso before n breakfast. [facility] montelukast Yes 10mg Take 10 mg Univers (SINGULAIR) 6-10 by mouth ity of 10 mg 14:25: daily as [place] tablet 16 needed. MD Jerome roche [facility] estradiol Yes 1g Insert 1 g Un marguerite (ESTRACE) 6-10 into the ity of 0.1 mg/g 14:25: vagina 3 [place] (0.01%) 16 (three) MD vaginal times a Anderso cream week n Wednesday, Cancer Wednesday Center and Wednesday. red yeast Yes 600mg Take 600 Uni vers rice 600 mg 6-10 mg by ity of cap 14:25: mouth [place] 16 every 6 MD (six) Anderso hours. [facility] omega-3 Yes 1g Take 1 g Univer s fatty 6-10 by mouth ity of acids/fish 14:25: every 6 [place] oil (fish 16 (six) oil-omega-3 hours. Pierre o fatty n acids) Cancer 300-1,000 Center mg capsule multivitami Yes 1{capsu Take 1 U nivers n/iron/foli 6-10 le} capsule by it y of c acid 14:25: mouth [place] (CENTRUM 16 daily. WOMEN ORAL) Jerome roche Cancer [facility] Lactobac Yes 1{capsu Take 1 Univ ers 66-Bifido 6-10 le} capsule by ity of 4-S.thermo 14:25: mouth [place] (Advanced 16 daily. Probiotic-1 Anderso 4) 3 n billion Cancer cell cap Center cranberry Yes 36mg Take 36 mg Un marguerite extract 6-10 by mouth ity of (Ellura) 14:25: daily. [place] 200 mg cap 16 MD Jerome roche [facility] nitrofurant Yes 100mg Take 100 U nivers oin 6-10 mg by ity of (MACRODANTI 14:25: mouth [place] N) 100 mg 16 daily. capsule Jerome roche [facility] thyroid Yes 60mg Take 60 mg Univ ers (ARMOUR 6-10 by mouth ity of THYROID) 60 14:25: daily. [place] mg tablet 16 MD Jerome roche [facility] losartan Yes 100mg Take 100 Univ ers (COZAAR) 6-10 mg by ity of 100 mg 14:25: mouth [place] tablet 16 daily. MD Jerome roche [facility] tiZANidine Yes 4mg Take 4 mg Un marguerite (ZANAFLEX) 6-10 by mouth 3 ity of 4 MG 14:25: (three) [place] capsule 16 times a MD day as Anderso needed for n muscle Cancer spasms. [facility] phentermine Yes 37.5mg Take 37.5 Univers (ADIPEX-P) 6-10 mg by ity of 37.5 mg 14:25: mouth [place] tablet 16 every MD morning Anderso before n breakfast. Cancer Center montelukast Yes 10mg Take 10 mg Univers (SINGULAIR) 6-10 by mouth ity of 10 mg 14:25: daily as [place] tablet 16 needed. MD Jerome roche [facility] estradiol Yes 1g Insert 1 g Un marguerite (ESTRACE) 6-10 into the ity of 0.1 mg/g 14:25: vagina 3 [place] (0.01%) 16 (three) vaginal times a Anderso cream week n Wednesday, Cancer Wednesday Center and Wednesday. red yeast Yes 600mg Take 600 Uni vers rice 600 mg 6-10 mg by ity of cap 14:25: mouth [place] 16 every 6 MD (six) Anderso hours. n Cancer Center omega-3 Yes 1g Take 1 g Univer s fatty 6-10 by mouth ity of acids/fish 14:25: every 6 [place] oil (fish 16 (six) oil-omega-3 hours. Pierre o fatty n acids) Cancer 300-1,000 Center mg capsule multivitami Yes 1{capsu Take 1 U nivers n/iron/foli 6-10 le} capsule by it y of c acid 14:25: mouth [place] (CENTRUM 16 daily. WOMEN ORAL) Anderso n Cancer Center Lactobac Yes 1{capsu Take 1 Univ ers 66-Bifido 6-10 le} capsule by ity of 4-S.thermo 14:25: mouth [place] (Advanced 16 daily. Probiotic-1 Anderso 4) 3 n billion Cancer cell [facility] hyoscyamine Yes Mass of .125mg Dissolve 1 Univers sulfate 6-09 urinary tablet ity of (ANASPAZ) 00:00: bladder (0.125 mg) [place] 0.125 mg 00 on the disintegrat tongue Pierre o ing tablet every 8 n (eight) Cancer hours as Center needed for cramping. sulfamethox Yes Mass of 1{tbl} Take 1 Univers azole-trime 6-09 urinary tablet by ity of thoprim 00:00: bladder mouth [place] (BACTRIM 00 twice MD TELLEZ) 800 daily. Anderso mg-160 mg n per tablet [facility] hyoscyamine Yes Mass of .125mg Dissolve 1 Univers sulfate 6-09 urinary tablet ity of (ANASPAZ) 00:00: bladder (0.125 mg) [place] 0.125 mg 00 on the disintegrat tongue Pierre o ing tablet every 8 n (eight) Cancer hours as Center needed for cramping. sulfamethox Yes Mass of 1{tbl} Take 1 Univers azole-trime 03-19 [facility] bladder mouth Henri (BACTRIM 00 twice MD TELLEZ) 800 daily. Anderso mg-160 mg n per tablet Cancer Center Immunizations Ordered Immunization Filled Immunization Date Status Commen ts Source Name Name UXOW-HoL-4LQESI-19mR 2020 Completed Arsalan rial [id number] 18:16:14 Herm meryl <sup>1, 2</sup> TVTM-InV-2APLKD-19mR 2020-11-16 Completed Arsalan rial [id number] 17:33:27 Herm meryl <sup>3, 4</sup> Vital Signs Vital Name Observation Time Observation Value Comments Source Body temperature 2022-03-20 14:53:00 36.61 [facility] Systolic blood 2022-03-20 14:30:00 119 mm[Hg] Univer sity of pressure [facility] Diastolic blood 2022-03-20 14:30:00 65 mm[Hg] Unive rsity of pressure [facility] Heart rate 2022-03-20 14:30:00 80 /min [facility] Respiratory rate 2022-03-20 14:30:00 16 /min [facility] Oxygen saturation in 2022-03-20 14:30:00 99 /min [facility] Arterial blood by Henri conner Pulse oximetry [facility] Center Body height 2022-03-19 17:43:00 168 cm [facility] Body weight 2022-03-19 17:43:00 103 kg [facility]in [facility] BMI 2022-03-19 17:43:00 36.49 kg/m2 [facility] Henri Jay on [facility] Center Procedures Procedure Date / Time Performing Clinician Source Performed POC GLUCOSE SCREEN 2022-03-20 13:34:00 Keron Landry MD [facility] Center PATHOLOGY SURGICAL 2022-03-20 13:17:00 [facility] [place] [facility] Center POC GLUCOSE SCREEN 2022-03-20 12:56:00 Keron Landry [facility] CYSTOURETHROSCOPY WITH 2022-03-20 12:44:00 [facility] AND/OR MD Garrido C ancer TREATMENT OF [facility] Center LESION(S) (2.0 TO 5.0 CM PELVIC EXAMINATION UNDER 2022-03-20 12:44:00 [facility] Center CT CHEST ABDOMEN PELVIS W 2022-03-20 01:38:00 [facility] COVID-19 (SARS-COV-2) 2022-03-19 20:52:00 Keron Landry [facility] PCR-ASYMPTOMATIC MC [facility] HEMOGLOBIN A1C 2022-03-19 20:28:00 Keron Landry [facility] COMPREHENSIVE METABOLIC 2022-03-19 20:28:00 Keron Landry [facility] PANEL [facility] COMPLETE BLOOD COUNT W/ 2022-03-19 20:28:00 [facility] DI[facility] GUA 2022-03-19 20:28:00 [facility] LACTATE DEHYDROGENASE 2022-03-19 20:28:00 [facility] MAGNESIUM LEVEL 2022-03-19 20:28:00 [facility] APTT 2022-03-19 20:28:00 [facility] PROTHROMBIN TIME 2022-03-19 20:28:00 Sarah [facility] TYPE AND SCREEN 2022-03-19 20:28:00 [facility] GLUCOSE LEVEL 2022-03-19 20:28:00 [facility] BLOOD UREA NITROGEN 2022-03-19 20:28:00 Keron Landry [facility] ELECTROLYTE PANEL 2022-03-19 20:28:00 [facility] SERUM CREATININE 2022-03-19 20:28:00 Sarah [facility] .GLOMERULAR FILTRATION RATE 2022-03-19 20:28:00 Keron Landry [facility] CALCIUM LEVEL TOTAL 2022-03-19 20:28:00 [facility] 2022-03-19 20:28:00 Keron Landry [facility] ALKALINE PHOSPHATASE 2022-03-19 20:28:00 Keron Landry [facility] ALANINE AMINOTRANSFERASE 2022-03-19 20:28:00 Keron Landry [facility] ASPARTATE AMINOTRANSFERASE 2022-03-19 20:28:00 Keron Landry [facility] TOTAL PROTEIN 2022-03-19 20:28:00 [facility] FRACTIONATED BILIRUBIN 2022-03-19 20:28:00 Keron Landry [facility] Results CBC 2022-03-19 20:28:00 [facility] MANUAL DIFFERENTIAL 2022-03-19 20:28:00 Keron Landry [facility] ABORH 2022-03-19 20:28:00 [facility] ANTIBODY SCREEN 2022-03-19 20:28:00 [facility] CLOT EXPIRATION DATE 2022-03-19 20:28:00 Keron Landry [facility] TMP INTERPRETATION ANTIBODY 2022-03-19 20:28:00 Sarah [facility] SCREEN NEGATIVE [facility] CONFIRM ABORH TYPE 2022-03-19 20:21:00 Keron Landry [facility] MD Garrido [facility] Center Plan of Care Planned Activity Planned Date Details Comments Source Future Scheduled 2022-05-14 COVID-19 Vaccination [facility] [place] Test 14:33:11 (#1) [code = COVID-19 MD [facility] erson [facility] Vaccination (#1)] Center Future Scheduled 2022-05-14 COVID-19 Vaccination [facility] [place] Test 14:33:11 (#1) [code = COVID-19 MD [facility] Vaccination (#1)] Center Encounters Start End Encounter Admission Attending Care Care Encounter Source Date/Time Date/Time Type Type Clinicians Facility Department ID 2022-08-06 Inpatient GURVINDER ChaudhariasafcherelleCHRISTOPHERPM DAYS [id number] [facility] 11:30:00 Stephanie 33 [facility] 2022-02-27 Outpatient SYSTEM, JHONY BOOKER [id number] 11:36:38 PROVIDER Pierre roche 2020-02-23 Inpatient John Paul Delarosa HCATO DAYS [id number] [facility] 11:47:[address] [place] [address] Orthope dic Hospita l 2022-04-27 2022-04-28 Outpt Diag nullFlavo [facility] [id number] Memoria 18:33:00 04:59:00 Services r Outpatient 04 l Beth Turner [place] 2022-04-27 2022-04-27 Outpatient PAULINO MaddenOIP [facility] [id number] 13:33:00 23:59:00 Stephanie Masterson 2022-03-27 2022-03-27 Orders Arpita, 1.2.840.1 [id number] Univers 00:00:00 00:00:00 Only Jammie Q 02996.1.1 ity of 3.412.2.7 [place] .3Ovidio044606 MD Nolan8 [facility] 2022-03-27 2022-03-27 Orders Arpita, 1.2.840.1 [id number] Univers 00:00:00 00:00:00 [place]ie Q 24974.1.1 ity of 3.412.2.7 [place] .3Ovidio545170 MD Nolan8 [facility] 2022-03-20 2022-03-20 [facility], 1.2.840.1 [id number] Univers 06:32:00 10:34:00 Encounter Keron 21364.1.1 it y of 3.412.2.7 [place] .3.319960 MD Nolan8 [facility] 2022-03-20 2022-03-20 [facility], 1.2.840.1 [id number] Univers 06:32:00 10:34:00 Encounter Keron 21090.1.1 it y of 3.412.2.7 [place] .3.295182 MD Nolan8 [facility] 2022-03-20 2022-03-20 [facility], 1.2.840.1 [id number] Univers 08:35:00 09:15:00 Keron 11835.1.1 ity of 3.412.2.7 [place] .3Ovidio398993 MD Nolan8 [facility] 2022-03-20 2022-03-20 [facility], 1.2.840.1 [id number] Univers 08:35:00 09:15:00 Keron 15291.1.1 ity of 3.412.2.7 [place] .3.825687 MD Meyer [facility] 2022-03-20 2022-03-20 Anesthesia Leigh, 1.2.840.1 [id number] Univers 07:56:00 08:32:00 Event Ashlie 76838.1.1 ity of 3.412.2.7 [place] .3.707160 MD Meyer [facility] 2022-03-20 2022-03-20 Anesthesia Leigh, 1.2.840.1 [id number] Univers 07:56:00 08:32:00 Event Ashlie 02326.1.1 ity of 3.412.2.7 [place] .[id number] MD Meyer [facility] 2022-03-19 2022-03-20 [facility], 1.2.840.1 [id number] Univers 13:00:00 02:13:10 Visit Keron 23385.1.1 ity of 3.412.2.7 [place] .3.545799 MD Meyer [facility] 2022-03-19 2022-03-20 [facility] 1.2.840.1 [id number] Univers 13:00:00 02:13:10 Visit Keron 15074.1.1 ity of 3.412.2.7 [place] .3.968763 MD Meyer [facility] 2022-03-20 2022-03-20 Travel 1.2.840.1 1.2.513.110 [id number] Univers 00:00:00 00:00:00 66151.1.1 350.1.13.41 ity of 3.412.2.7 2.[place].7.3.698 [place] .3.733547 084.Leatha Meyer [facility] 2022-03-20 2022-03-20 Travel 1.2.840.1 1.2.848.242 [id number] Univers 00:00:00 00:00:00 85127.1.1 350.1.13.41 ity of 3.412.2.7 2.2.7.3.698 [place] .3.234546 084.Leatha Meyer [facility] 2022-03-19 2022-03-19 Elba Claudio 1.2.840.1 [id number] Univers 23:59:59 23:59:59 Event Marites 42911.1.1 ity of 3.412.2.7 [place] .3.504612 MD Meyer [facility] 2022-03-19 2022-03-19 Elba Claudio 1.2.840.1 [id number] Univers 23:59:59 23:59:59 Event Marites 43377.1.1 ity of 3.412.2.7 [place] .3.696463 MD Meyer [facility] 2022-03-19 2022-03-19 [place], Neema 1.2.840.1 [id number] Univers 18:00:26 23:59:00 Encounter Inna Hanks 20835.1.1 ity of 3.412.2.7 [place] .3.282648 MD Nolan8 [facility] 2022-03-19 2022-03-19 [facility], Keron 1.2.840.1 [id number] Univers 18:00:26 23:59:00 Encounter Demario Inna 06942.1.1 ity of 3.412.2.7 [place] .3.607259 MD Nolan8 [facility] 2022-03-19 2022-03-19 [facility], 1.2.840.1 [id number] Univers 14:45:00 17:59:00 Encounter Keron 12301.1.1 it y of 3.412.2.7 [place] .3.079589 MD Nolan8 [facility] 2022-03-19 2022-03-19 [facility], 1.2.840.1 [id number] Univers 14:45:00 17:59:00 Encounter Keron 98825.1.1 it y of 3.412.2.7 [place] .3.784829 MD Nolan8 [facility] 2022-03-19 2022-03-19 [facility] Keron 1.2.840.1 [id number] Univers 12:45:00 13:00:00 Support Gaetano Majano 35693.1.1 ity of 3.412.2.7 [place] .3.058236 MD Nolan8 [facility] 2022-03-19 2022-03-19 [facility] Keron 1.2.840.1 [id number] Univers 12:45:00 13:00:00 Support Gaetano Majano 15603.1.1 ity of 3.412.2.7 [place] .3Ovidio074316 MD Nolan8 [facility] 2022-03-19 2022-03-19 NPR 1.2.840.1 [id number] Univers 11:30:00 12:33:40 22133.1.1 ity of 3.412.2.7 [place] .3.928581 MD Meyer [facility] 2022-03-19 2022-03-19 NPR 1.2.840.1 [id number] Univers 11:30:00 12:33:40 41609.1.1 ity of 3.412.2.7 [place] .3.044753 MD Meyer [facility] 2022-03-19 2022-03-19 [facility], 1.2.840.1 [id number] Univers 12:00:00 12:30:00 Appointmen Keron 88021.1.1 i ty of ts 3.412.2.7 [place] .3.059756 MD Meyer [facility] 2022-03-19 2022-03-19 [facility], 1.2.840.1 [id number] Univers 12:00:00 12:30:00 Appointmen Keron 16236.1.1 i ty of ts 3.412.2.7 [place] .3.883357 MD Meyer [facility] 2022-03-19 2022-03-19 Travel 1.2.840.1 1.2.461.884 [id number] Univers 00:00:00 00:00:00 10941.1.1 350.1.13.41 ity of 3.412.2.7 2.2.7.3.698 [place] .3.963496 084.8 MD Meyer [facility] 2022-03-19 2022-03-19 Travel 1.2.840.1 1.2.358.732 [id number] Univers 00:00:00 00:00:00 97747.1.1 350.1.13.41 ity of 3.412.2.7 2.2.7.3.698 [place] .3.483245 084.8 MD Meyer [facility] 2022-03-17 2022-03-17 Orders Arpita, 1.2.840.1 [id number] Univers 00:00:00 00:00:00 [place]ie Q 60141.1.1 ity of 3.412.2.7 [place] .3.193242 MD Nolan8 [facility] 2022-03-17 2022-03-17 Orders Arpita, 1.2.840.1 [id number] Univers 00:00:00 00:00:00 [place]ie Q 26818.1.1 ity of 3.412.2.7 [place] .3Ovidio013616 MD Nolan8 [facility] 2022-03-13 2022-03-13 Outpatient FOG_Luo_Ran AOSM AOSM [id number] Chapis 10:46:00 10:46:00 Maday [id number] [facility] 2022-03-13 2022-03-13 Outpatient Hilario, VEGA AOSM [id number] 00:00:00 00:00:00 Thiago Aguilar [id number] 2022-03-13 2022-03-13 Outpatient Rich, AOSM AOSM [id number] 00:00:00 00:00:00 Thiago Aguilar [id number] 2022-03-05 2022-03-05 Outpatient FOG_Luo_Ran AOSM AOSM [id number] [facility] 09:38:00 09:38:00 Maday [id number] [facility] 2022-03-05 2022-03-05 Outpatient FOG_Luo_Ran AOSM AOSM [id number] Chapis 09:38:00 09:38:00 Maday [id number] [facility] 2022-02-26 2022-02-26 Travel 1.2.840.1 1.2.958.181 [id number] Univers 00:00:00 00:00:00 90873.1.1 350.1.13.41 ity of 3.412.2.7 2.2.7.3.698 [place] .3.468495 084.8 .8 [facility] 2022-02-26 2022-02-26 Travel 1.2.840.1 1.2.817.862 [id number] Univers 00:00:00 00:00:00 96968.1.1 350.1.13.41 ity of 3.412.2.7 2.2.7.3.698 [place] .3.546051 084.8 .8 [facility] 2021-07-08 2021-07-08 Outpatient GC_EAH_Brow PRIV PRIV [id number] [facility] 00:00:00 00:00:00 n_J [id number] Medica l 2021-03-18 2021-03-19 Outpt Diag nullFlavo [facility] [id number] Memoria 17:18:00 04:59:00 Services r Outpatient 03 l [facility] 2021-03-18 2021-03-18 Outpatient Angel Lubin OIP OIP [id number] 12:18:00 23:59:00 2020-02-27 2020-02-28 Outpt Diag nullFlavo [facility] [id number] Memoria 19:23:00 04:59:00 Services r Outpatient 02 l [facility] 2020-02-27 2020-02-27 Outpatient TristianAngel OIP OIP [id number] 14:23:00 23:59:00 2018-11-01 2018-11-02 Outpt Diag nullFlavo [facility] [id number] Memoria 16:12:00 05:59:00 Services r Outpatient 01 l [facility] 2018-11-01 2018-11-01 Outpatient TristianAngel OIP OIP [id number] 10:12:00 23:59:00 2018-11-01 2018-11-01 Outpatient TristianAngel OIP OIP [id number] 10:12:00 23:59:00 2018-10-06 2018-10-07 Outpt Diag nullFlavo [facility] [id number] Memoria 20:29:00 05:59:00 Services r Outpatient 00 l [facility] 2018-10-06 2018-10-06 Outpatient Angel Lubin [facility] [id number] 14:29:00 23:59:00 00 Results Test Description Test Time Test Comments Results Result Comments Source Pathology Surgical Interpretation 2022-03-23 16:00:16 Test Item Value Reference Range Interpretation Comme nts Submitted p3dvqMCuVVRgp1mkXRStgLXlGsZsLpKxMaQwHwncdFWjCCfmdtThYNupq8WaJ5WxYxFhOYxcdsThHIPr XwyrqqqnKTXvLSK5ubCnJAFaYJslBPRfSTmaEo4olBEcsUwzXlNgMQCyh1yidsCVlnolkDd8g8dxEVOg HbN9gAIcXSjqM3vaevJspPMqLGPfWVg8wI69EPGa lC2diRBdCOrtjwRbGkT4BDaaETZpPiF8RDCmvCQjWHNuP Clinical 8opPYUzDUfjAVToGNfvrGVpZGM0wGnzc4P2fRXuwQKprKpgNkJhZpUjOzDWv0XyWVk1uKmrD9EuSXAvO aS9cAKeIEJxJAzaSTTrDZFlukA7cR35VGboipO7aKBni3Lqc27mo259iL6snJCmEOB7WHOsLUOakIKtR VVuMXH1BPZdhIYyU8ssAICgBX7xninpGDcxKXvaA PFlmJK8UATleNBpA3DsLNPuUEmcCAYrlcm9MrUaRt2pnP History LotOirYNexz7pbj2mkoHDjZed7IKGuFyPiHkygKPoua4Unc3hyOSTkcy7bNAQ2qAJvzPiqb5W6bNSkEI OixUUrfsIdZVIrSqG8HSsoAN3syo92OQUyNTJ5fl3ofFKcjNrvjqAbcKXkKZfnD3RrNWLbz396CNKeC1 KzKVEoc6D4dpQaMqVdXCGnjEC2nkE0ACRhVQc5jU WcbsY4gkKllWMjY9prsO4cJJMnNV2lbavqz3phJRnsMCc (test code oXUUktSS9ccS7MYIkbYEgM8TxvQ1aWHXmKHwqXVCdlxu1SwWeZz0ryXPjkIjoLHthPcluFTedEACsiaC mugYacIjuWLJyESPeSUauGFBxYIxeFGUiKZEiQbYuhRrwjBqbwD4mAwApEtOlKOtkZT2wWLGoX6bgvAO yRWTmRGSaU9jeTcLekA0tnAtbRVpwzeKfUM4uk0Q kq4OvmBDxnnBjgBAepBYeXRCePPaVXeVqWTuaKSFfWZwr = 28901) VXPtEHRwYnItlXToTrOyPzDizVslbUucYKvmWbCoQVXtDPhtM7ejDuTzMySyGvilBOW2kV== Diagnosis r8ogaXXxOOZboED1RRTmGNEmc1epc2UvqDVwrZWnVRsrkSRruxAcns71hDN5pK04PR5nOGIeTwU4MXTa zyW9Wrd9THYyCDXbqCAdU212e0jgt6udaxSgkPF0VTYmJGKeU2TtQA3aJUSehWBnG42sxWXdMYB0AGQf DOBqcPCmFZCnQXP2IOTcbIKpU9inFEDmNJ6xugfa TEqaJNqoNDXquGM1LLGsdPXtJ6MbSVNpLYccXIPmmor9S (test code gOnYa1rnGOomLxzBFskVUJxDXByTMiwQRRoKyIeC9WtAHI2BTOpZ3a6FAixzZEsGQhzGafoSINiuqC2t D0fepztPxrzwVQ7AyowOSCzpTn7UrBltTwqKnCbNMEtHDLGrM5ugHKlH3whuHu6uEMrE5flyHknANCgj OTcfUHeZFYcEYDbkk4qlHQcNGJszzXfoJAeVZHFI3FRJmppRDQ7 = 34) Gross a5rndLXiAFXvdTQKEXfhYWuzxrKhINGavOYrG0TbjvyyWQvkSR6lTI0tlGnfwGWrbGKaPM3KFMCtBmLg QZNiwEVlsxQnKbMaLTLpbQObkSM1AXDfZU3tgjuzTVryMTpzZZNgysJ0SALhnSGbB5ZyNZXfFQ3rpbgt NDT4YFtwjF2qheNPEqlfIv0pdVRfhNveAiBlFuTa ENWbUZAtEOEhgPniLLScNQa7rC4ZJcvaS93gq3O6Lbj1Y Descriptio CBqUTDvA7YiJK0yZOSstTGjU05VIpihTWI5MPJZWgphQHIdSY8Uz6cfOKTvrJPzZWB8CBmryWRnDDOmA DJtNQq2KASaVImwdTOvJE1hlGylMgexpKfuo0SqiJDvYQbzGPUcUSZxLFfbCAIbLI5CGyGpFMWiUHs2U SOgXLa5ZPc4YY6TNcGsFSTkYVLcBQM0IVCtMIk1W QyeUC4CUDLdMePsLVIlLYNgHVFuHkKtZJi0UNHiOZgtFD n (test VmzTGtNJlgThFuGCVxWEwvFkDoNBJnEIjuyiM5YPTxRPimDECcReYyXWQFCeupJMVjGUolgScqoK7kSV YiH30wk2LId9QcYR6CCSo4xfYyynzoxT2pFYYebeIhYXqsjVXvY5buVuwuPgFrDoYyMCWCgzenNTT7XU LuUVKyPUFqUFTaF1b8KWpvaOXkVPjwLaymQMGklh N6eG9pujXkKFDcu1DuFPwdLpOrV6JtTMYfLpcxqFSgZsH code = nbTUfYeAcE88uqBngjr57WF5asVluc9CrOGUvRWwoFD57CBSrfiRylpAsaCScoEXrhMJ9DVDfuH9iLAC zCLQpfHDikRQhhYhtGrrliOE4KOzyDqbjuS0grUQKXPIBAylHJvmrhkVnGT9PLY3VLhXUEX69FfYeJWO 8BGsDX9YGkIR6Wcn8TRr0nWwdWkqljwGjtHAvOmQ SdI4LLYE6GWTuZWsjd5ohZFDcGGyrx4UtVXcAPANNWT6P 1653703671 EA6xyTB6YEvFY4FXCJrlYIOiEgroyHWJRDY7SVverIlmoWt9q7agzNVix7v2IWpqVFV4gUsscIRmsxxu yWKbfHmuynMvHF9KMTBvyZQRLLN3WE0kWZc5OIntGXGhI0FfS0SayqJhfFIaDSAyknDda3urZPY5JZIw nANlpMSuZyGkWcnvYWF6RPBfXBfoDR7BNURmWWH8 QLoxiP99oLSeER3JXYBhNBbfMYLmEAJtmgI9OFIfcLUqT ) ME3RX0diYsazYEdlprcozN9SK2ZiI== Heel Gouger i5ulwWKjKPMrrGK6NBRnQRTeo3jzp7MvpNFnxJDcRPzrxJGoyqJqfb61yGK2mX60LW6vLZNpIqR4CPBk kaP9Fro4LKUcPGYqnRPyQ551q5xba0oqjxCnyDK3yWkiEHUsnddvJxM1JQrbKHIhprvpMQp2XEhqQUYj eTB3DDGnbNMgL5JsPWOmPO7yecv2UUB3ZPukVQGt GoP1UGJedROqPBSqtXwnMDwfr997FCJ0CoJuSEJsdrKen (s) (test AiurE7fIsVpTQJAO6wyfSQkaM== code = 9863) Biomarker h7cljVPdXNQssZC4DJTyDJPwm7abb5LoqFWjgDIqGUirqWZlitOrxm06qZC1wZ05MW9kLOXbKoJ2QOMt ibX1Dyq3JEOqRIFcmNOxA607s4sgk5sgyfQamRG5jNmbASNdmlafDwI0UZlwUITqjasfQRi1LOgkRRCc dSZ7OFKhuIWhI4VuPRMgRH6yewk5JLO4GQtwJYNd HnV7OEDgpOYrUCGcsYevJDyga913APZ2XxMiRQXgpgYrb Block(s) DohwV2pTeHzFYGXO0ZjfABdmM== (test code = 9841) Disclaimer e6hgtHCbYMRgvNNiIdHqDISsWUCli9eoUJHwhYDlOiJwInDeZaQtMlrlhKQcKKQjHbHor0hgu721jGRm a6erCOHcOqV4nTXiQGUpiGRwM412AZDaLHozy7lcj8GxAEHqpDOmh7H2SPGYwdiqcOg0zQscQ44os6P0 WgpyQ0xsXAWlHSTwJ1GeHA5pIPQdCyk1XOH1QXA6 WDNoWBNdI0OeWT1hCLSgqMWeWJq6e1ensJovOXWvGOK9z (test code 6cfTNyroeClFX0kkf7waFg7l4haksYvJCVnSUBsvLMXJRRaL4MpbOaqFv7hkBb4wGgeTxmvFGU9Yap4C A0wfz38who4bXshKRSwrszvNcO9WLxmHRLulogrANw0PWetVCAhsFA6FWVhyHDcB2EdQECjTO5rtwz2G MX6AByzAYRfUsJ7IMMqySNdWBLvhJsjILkia875V EZ1CfVrED2sZ6Inr8C8cZ0upKRnJOYxbPLoQaDvEJUbri = 9844) 5syUYgMYvts8PoHTL6gnB9vMVbmJXrSNPdLY61Hkbsa7IbUrfpZJN3SRZbgcTgp8Sir6ckInWymhWtC2 emG6GhNEHuYHKbYATkWxSiojRrb4Lqo5QnlDQagEr3n0umVVPlJLLiiKlpy8fzRRG6HECxM9M8cJXxw3 emYEanWWUthPB8gaD2KLTqdUEaT4FtkK2gKRMxON 4xqnh8q4sbAKK1ZPbbWBHuPzJ3zmU6VUHdeCUtWVBwzEw jSZhtr814EEV6ChCeQJOyd9KhT5OulMjyY04rvHbrO38tGBIafXqgxY2rrGgjcY6pVlRdRxZfUTrmbAa cwSWjxltuOKzirjD9PHjkbianMNQtZMvoB3rhXgJgNVMwjBjjIRihj3CzIFDpYUMhMqulpiR2WHFWo95 uHZTqw1JaMAAmtZ9zkKYzHJrbbrMnhZI3ZOfktxD pAnEwnkQjHBOuhQ3sOMVkHT2cUYKvkgSatz3tegNkVMAy BDQnL5QvyjhzsSkfatVaHWRwuc8iqlAoCYC4NAREWI4QHFSdOZOca80sOSRizAeaqB8hsQMwwtPiAJWt m6GgsV3paQTAGFWoI5vwUQ8jSXexd6AmoJBsgEZbeYG4KBDzu6FqLsFvaaXasDRlyEKpI4LscLltL3wn MZGaZXAykaIvnYZwb8FhSWZiuYM6nJWcHV3VKoJT f73rIXXzZISRonFgLXJsuJuxsOD0xoV7tP9zXbGHKdNky RHafERsVwbtXNRni698ax6lylP7UPMxTKOwqambv4GnNWNnDOEvtC05JVIdXXEtmb4shcsgaWMurvGzL 7Froth5iN3zRPEvUOyfAYIzWRQbCuAsrYKsHtPaCpUpnGnffNhbNHgsOrNtVPZkFGdjU7zdVdLmUoYmG lxwYXJ9 [facility] Interpretation 2022-03-23 16:00:16 Test Item Value Reference Range Interpretation Comments Submitted Clinical History w7fdiTNvCWYhs7vxAKE (test code = 66497) mbGFuZzEwMzNcZnRuYm pcdWMxIHtccnRmMVxzc 7GxN1NgLcRiUSwbvgEi XGRlZmxhbmcxMDMzXGZ 0bmJqXHVjMVxkZWZmMH pgOs3tbIEveIylYgSzQ SMnk5pashINzaqrzIb7 c7qiIOYpZyA6tMZpBDm oJ3njmsBbvSLtWVTfDH w2jL45IZZbmC2nxLVyP KmsocEdEwC9ZMqoZQRq RrH6SICvdIMnLTBcE1z yZWQwXGdyZWVuMFxibH HiDGH9iLrdv0F7gAHip GVldHtcZjBcZnMyMiBO r8YvIAf1qEieF3XcNKO aKfV8iJCuWJSvKZwqSY ViUKOnkjH5wL35IIgwp yP7zFDdz3Pmf16fu311 dY4acKUpQJY7KOIqISE ehTDkFDQaTPS7OXBhlQ NxC5pxSCAaJP1snnysI QthUSzbTJKfwLJ1BRZz cRCyK2FrIAOfJLptRUY ycuu7DrFxKz3ydIFseD qzJVsww9khl7driTYbR gd2JUPlKlYeBvfxTPxa w9Smo0jxKFVfnw1tIAO 7oVNczNmwp8W0kZGlCZ GlqPFnucCiAFJjMrV0H XcnIF4mrl80BKNaVEU4 wy3qjGUvyXuxxsCknHT mXCpyJ6ZjJHEqf621LU FcC3DhSYEwd3J0pcVpS xIqWVHpjYJ0goI7NWFg PCn0sBZnkwJ0rvVnlQQ lN7cpeW0qYHFyPJ8shc amq7xtXGeuALudJBCwq QE9vrY2JAKmvQGjH1Yl lY5uGJHqRJnpFEHediw 9AfXkNb2rpUTbgGciEI xzYmtwYWdlXHBnbmNvb nRccGduZGVjXHBsYWlu XHBsYWluXGYwXGZzMjR pcMxqdUcwoW6eKaVjWi GdXRkgGB7gRCEdS1pxu DUbHQYhREXdJ4syOvKb hR6rtAejSQgcfoQmRR4 la9Qsj8NjdBMbszGmuN BibGFkZGVyIFtOMzIuO DldXHBsYWluXGYxXGZz MjJcbGFuZzEwMzNcaGl jaFxmMVxkYmNoXGYxXG giZ3pqHgJqIfZmKaqyH XJ9fQ== Diagnosis (test code = 34) f4tqqXFhWJPquCS8MHQ zKONdr7alo3ZplXXpoZ PrDDkalBDncoOgbb67q SN2nJ90TB6mOZMkAyP5 GJJqviK5Xhn0KLEwAPS hkOEjQ387l1alz1nknu WayGR8YFYpMNMeS5LlI F3aYLTmeQYlY94gzBQr UEG6WOBtZWJmrHHdMUK bQLW5QMUubEJyA5bgPB AzCZ6ekjfiQCytEPfzC FGdvVN0JTKecJPrL8Zc UPOiMDksDKJdnaf5AxF eTb6ypHXgrFhoKElsKI JkXHBsYWluXGZzMjBcY 8YiIYJ8UKDbH7g7TZau dGVyYWwgYmxhZGRlciB 5cZ1sjijuPgmroDO0Qy xfFYUmbWl7GtTqqRwjL dAzPYBzMSWKeW7vwMSc N8jscKz4zLLsO8judCy jYSBldCBnbGFuZHVsYX Wjui1neUDqRHOkjxIbt YOpLNFTR3SQOzyoMXI5 Gross Description (test g1xxbBQfYAJxqKATLUu code = 1300131100) wMVxhbnNpXHNwbHRwZ3 IlbvytBCrdFD1mAT6al JdwvPJxpXBtUC7UAAPe ZmYxXHBhcGVydzEyMjQ eOLBkpNHycYX9XMQqFH 1hcmdsMTgwMFxtYXJnc iW1XZBjlQHhV8NdGSEq QF4mhxmzABA8YXdrbH4 nzcXCQwbjYd9zqVGzaC tcZjFcZmNoYXJzZXQwX SPflSeeAHPxZSm2tP3U UrrtG87zq1W2But0UJF zASPgN3DpUF2sAZTohA LtY80GIhttIWI1VLMNP rgoNCCrYW9Wq4neKVGg fSJpROW1NMgueGIsGES jSCPyATj2IWTuQPpgjP PlHI9qrUzbWxnddPpqt 2VjdCBcXGlkIDUxMDAy JNgzJLSxNS1MHnYnBOI jSTd1CFGfQBv7BDq1PB 3FZjUbZUGtCXZjPSU7S INoLYj2TJcrQK8ZPQAy NjIwOTEzNTMgNTUyNjE pRDz8GUHhUKbxEVEboH FsIFxcZnMgMTAgXFxmY dDyDRJzXFoyhcW4LLGj YWluXGJcZnMyMCBBOlx eHHBvXVvncPmbpL4pPK EqN76ro8NTt8AeRG9JV Tp6wgSptnralI9tRWHc btSoHQcudMOrJ3grAgc jZjFcZnMyMCBVcmluYX X4DSMfBAGhVBJbIGOiK 9w5TJmycZMcBUgwQbhx YFCtxfR3fD4ddzHqWDI et3YgQCpqQbCwY5NlLR AwLjggeCAwLjUgeCAwL uTvC57bcEeyfy21OE5h yFsms1JzDBTlISqpEN4 0LCBlbnRpcmVseSBzdW RdkKZ3LKFnuW6dVPPxP CBccHJvdGVjdHtcZmll nJP5PLegJtlxxJ5blGK IWVBFUkxJTksgbmFtZT 3SSO6UTiVYYC28HkVeW LC1YRxLN0YEtIY7Rzj4 IWo6jAypKpkhlcNeaAK qXeHOiT5EKCI8HIVfDN ank7jpTWHqGLrhs7FeJ TjEPJAZBE6ATV5obHH6 DJvJO7OSXBtyICQoTnr bxUKRYVU5EEwwfKpvrX d4e5tneDSih4f7WJueM HG9jCfmiHXyyicvbYDw dVcpjwAuOG8RTACwdFT KYVW6RU2xFRq5RIobOZ JzK8DpC2QdpfIzvSFjF DDhhsJvs9lqWIJ1CHSt bXVsdDBcZnMxNlxwYXJ 6PZZfSKpmJU4LYJNrTQ G7IQxfuI43iEGjEI0YL HBsYWluXGZzMTZcdjB7 YKVpaDYuCMT0EW9doJy sxGAkwkmsugO9VL6ZuM == Heel Gouger(s) (test code = v5qixEQtIRXgxOM4UOU 9863) dZFLqt1chb9AmeWMziN NsUDslwTFzzaVdif80i RJ9wM91GT3oDUFuOeV9 ETYhetN3Rme0AGAtFIV ivTHvQ485c2ngv0kpcd KvlQL3yIpqWFRrwmbsW gZ9NUsaBSIlkeiuBXe3 KRwtXDIwmPX6RZXhyJC xX9DxTOBvLZ7yxls5DZ K8REmwXLDjGgD0LTXzg SNsGJUzgGkzXJtam432 CJD3NzClTUMihpLybFy frK6jGfMkXEDQH5prxQ FyfQ== Biomarker Block(s) (test j9joySXlYTImwXV7HHP code = 9841) kCFGef0ktm3SzjAFgeS XiQRqdkZOxsfPxvc96b ZU9iH03OF8qEKOqGmG1 SNPbogG1Ulz7YSUkQMI fnHZxS510o9gtx3ipsf FstQI9oKbaVCLjbdukH pW6GYbdLYRenpboBFu4 QUteQVTvnMK4LYAzsGS tQ5XeHITjBO8zxmt5AC F9NWsbHCEhGaK8YQTcs FOhGPQpbAikFIbnd317 TVN2CrEwUXAlvzBmbFm jeR6sUtGxATMXF3KbyY FyfQ== Disclaimer (test code = j0lzlULgTFXulMHhYlB 9844) yKIUtTQEjt2huLZYelW FuZzEwMzNcZnRuYmpcd FSfOJZvYjCun2rcp700 nNFck9htMSIpWoT9gEW mABOyoTSoY364VSSqHL zyv7hqa3YgQVTkkOFfk 2U9PPKPrhcvpAs4yFua C59hl4K4XybwO8nmCMP zIORkL0AqMQ6mXODsZb w2EBE4RNT5JGZyTRWjP 5MzLI9aCIGtgNOrEKk5 a2aesBkwIVLmBVV0v1j sPWvyvhEcSA4tpm5qxZ v7w9unfyZnYDDvBAFmy JIVELQsB7DatSvhJb0y aNd0iIizQxzqJMO7Eak 6BP8ndf79czz7fHbnCS NtktkwRfG9SVcrKGIei vjdKWq1PIctQLYyuZF0 IHQvxKVfM9BaPCLcND8 wjyb3KHA4CZwtEEWdMh M8EJOjtRUlCGDkpTpjD Hvnv174DWL1DzFfPT2y L5Dno4T9nJ6gjKHqJEN gjVIyLnSzHVOzpa4mmV EgEElaw4NeOIM8cmU1e IDseEPwQHIqCS69Xxty m9SkZjkeJFW7ZELivvZ mh2Vwk4bdOpZdpaDgG3 itL5JjCQBjEBIzWNBiI xRjouDps4Rlz4TmvNXg rMu7a9mzFNDoJQCfyVz vz6xgKBS9CHMaR8Y3rM Wow7yjACoyFMCwpEK1x rJ0UJEjmGRjL3IjhJ2r ATGvBO6wchk4o0ycHPC 5CWvbHBItSxY6nxA8NE BcaGVhZGVyeTcyMFxmb 479PUX0VsFhJXHma8Uh M7PizWopJ04qaOzkH37 rRXKoeWoolH5azQmeeY 5cZjBcZnMyNFxxbFxwb GOzhhuiADfbtaD5BHtx mmeoLVBlISzlS2zsRsZ cCENsiPctDGphn8HoEG LsVIAhMsstixK3USLIx 69sHXUtq1OuPTNirT6o kXOmNEgibsPsaXZ6XGx hdmUgYmVlbiBkZXZlbG 8mGIKrHQ0rSCRiyvNfl e6gptDbWSElJMKgM7Ck cmlzdGljcyBkZXRlcm1 vdxNgUGQ2FVBCNY9WLP BhSQEbt91aGRZfbHxqt C1cpEWebsBeSXJun7Su hD9tpLDSDFFjH7lhAH2 cSLgww9VnyELvcPAcoE B6UJKzj7WrHkFlyyUtf DBkoVVoX3UnqNewB9nx OSHbBGIyxaEwdOYak4S qBQZmfAZ1aXOfJN4XTq EYa94lWYHpZUPXpkUiP EAurXpgpWM0iyI5aB1e LiBJZiBhcHBsaWNhYmx qHRVxy491bo4xwoE1IH EgQURemunyp1EsOCKwU OQfbW82DHHuZQRfaw0k iqtdkDKxjeVdN3Unccx 4bR2xLLVcQUtxDOOlNB ZzMjJcbGFuZzEwMzNca GljaFxmMVxkYmNoXGYx ZGlqC0fhCvYuDnXeTtk wYXJ9 [facility] Glucose [id number] 13:45:52 Test Item Value Reference Range Interpretation Comments POC Glucose (test 91 mg/dL 70-99 Capillary blood code = 95146-9) samples, e.g . obtained by fingerstick, may have inaccurate results in lance ents with decreased peripheral bloo d flow. Method descript ion: All results are measured using Electrochemistr y test methodology. Th e glucose in the sample mixes with the reagents on the test strip. The reac tion produces an rj ctric current. The am ount of current produce d is proportional to the glucose concent ration in the blood. PO Sample Type Capillary (test code = 9554) Performing Lab [facility] (test code = of Henri Miller 0[address]) Clinical Lab, [address] [place] [address] 30; Alemite Operator: Nataliia Hodgson MD [facility] Glucose [id number] 13:45:52 Test Item Value Reference Range Interpretation Comments POC Glucose (test 91 mg/dL 70-99 Capillary blood code = 51646-0) samples, e.g . obtained by fingerstick, may have inaccurate results in lance ents with decreased peripheral bloo d flow. Method descript ion: All results are measured using Electrochemistr y test methodology. Th e glucose in the sample mixes with the reagents on the test strip. The reac tion produces an rj ctric current. The am ount of current produce d is proportional to the glucose concent ration in the blood. PO Sample Type Capillary (test code = 9554) Performing Lab [facility] (test code = of Henri Miller 54650) Clinical Lab, [address] [place] [address] 30; Alemite Operator: Natali[facility]son [facility]- Asymptomatic [id number] 05:45:45 Test Item Value Reference Range Interpretation Comments COVID19 (SARS Not Detected Not Detected CoV-2) Result (test code = ____This test i s a 37887-7) qualitative reverse-transcr iptase polymerase sandy n reaction (RT-PC R) developed for t he [employer] ZEN 680 0 system and inte nded for qualitative detection of SA RS CoV-2 RNA in nasopharyngeal and oropharyngeal s wab specimens colle cted from any indivi duals, including those suspected of CO VID-19 by their health care provider, and t hose without symptom s or other reasons t o suspect COVID-1 9. A fact sheet for patients provid ed by the manufacture r ([employer]) c an be reviewed at:https://www. fda.go v/media/266561/ downlo ad. A fact shee t for Health Care pro viders is provided by the tobacco classer ([employer]) and can be reviewed at: https://www.fda .gov/m edia/798647/denice nload Results must be interpreted wit hin the context of all relevant clinic al and laboratory find ings and should not form the sole basis for a diagnosis or treatment decis ion. Positive result s do not rule out bacterial infec tion or co-infection with other viruses. Negative result s do not rule out SARS-CoV-2 and must be combined wit h clinical observations, p atient history, and/or epidemiological information. "Presumptive Positive" resul ts are due to partial amplification o f SARS-CoV-2 targ ets and indicates l ow amounts of viru s present in the specimen at or near the limit of detection. Regardless, individuals wit h "Presumptive Positive" resul ts should be manag ed per institutional guidelines as individuals pos itive for SARS-CoV-2 virus, including use o f appropriate inf ection control protoco ls. Internal contro ls are included to ass ess for possible amplification inhibitors. If inhibition is detected, testi ng is repeated and if inhibition is confirmed the specimen is res ulted as "Invalid". W hen an "Invalid" resul t occurs, it is recommended to wait 3 days before submitting a ne w specimen for te sting if clinically indicated. This assay has been approv ed by the FDA for use only under Emergency Use Authorization ( EUA) in laboratories that have been CLIA-certified to perform moderate-comple xity and high-comple xity tests. The performance characteristics of this assay were verified by the [facility] at [facility], CLIA Accreditation # : [id number] and CAP Accreditation # : [id number]. COVID19 SARS SERVICE CASHIER Swab Source (test code = 10569) COVID19 SARS Pre-OR Procedure Indication (test code = 62569) [facility]man[facility]OVID-19 (SARS-CoV-2) PCR- Asymptomatic [id number] 05:45:45 Test Item Value Reference Range Interpretation Comments COVID19 (SARS Not Detected Not Detected CoV-2) Result (test code = ____This test i s a 06603-2) qualitative reverse-transcr iptase polymerase sandy n reaction (RT-PC R) developed for t he [employer] ZEN 680 0 system and inte nded for qualitative detection of SA RS CoV-2 RNA in nasopharyngeal and oropharyngeal s wab specimens colle cted from any indivi duals, including those suspected of CO VID-19 by their health care provider, and t hose without symptom s or other reasons t o suspect COVID-1 9. A fact sheet for patients provid ed by the manufacture r ([employer]) c an be reviewed at:https://www. fda.go v/media/727954/ downlo ad. A fact shee t for Health Care pro viders is provided by the tobacco classer ([employer]) and can be reviewed at: https://www.fda .gov/m edia/577202/denice nload Results must be interpreted wit hin the context of all relevant clinic al and laboratory find ings and should not form the sole basis for a diagnosis or treatment decis ion. Positive result s do not rule out bacterial infec tion or co-infection with other viruses. Negative result s do not rule out SARS-CoV-2 and must be combined wit h clinical observations, p atient history, and/or epidemiological information. "Presumptive Positive" resul ts are due to partial amplification o f SARS-CoV-2 targ ets and indicates l ow amounts of viru s present in the specimen at or near the limit of detection. Regardless, individuals wit h "Presumptive Positive" resul ts should be manag ed per institutional guidelines as individuals pos itive for SARS-CoV-2 virus, including use o f appropriate inf ection control protoco ls. Internal contro ls are included to ass ess for possible amplification inhibitors. If inhibition is detected, testi ng is repeated and if inhibition is confirmed the specimen is res ulted as "Invalid". W hen an "Invalid" resul t occurs, it is recommended to wait 3 days before submitting a ne w specimen for te sting if clinically indicated. This assay has been approv ed by the FDA for use only under Emergency Use Authorization ( EUA) in laboratories that have been CLIA-certified to perform moderate-comple xity and high-comple xity tests. The performance characteristics of this assay were verified by the [facility] at [facility], CLIA Accreditation # : [id number] and CAP Accreditation # : [id number]. COVID19 SARS SERVICE CASHIER Swab Source (test code = 22084) COVID19 SARS Pre-OR Procedure Indication (test code = 34530) [facility]
[2022-08-06 16:07] LABS: SARS-CoV-2 Antigen Rapid Res Negative (Negative)
[2022-08-06] MEDS ORDERED: IBUPROFEN 600 MG TAB PO PRN (16:36)
[2022-08-06] MEDS: Ringers Lactate 1,000 ML IV SCH (17:57)
[2022-08-06] MEDS ORDERED: GLYCOPYRROLATE 1 MG PO SCH (21:00)
[2022-08-07] MEDS: Ringers Lactate 1,000 ML IV SCH ×2 (01:14→07:00)
[2022-08-07] MEDS ORDERED: THYROID 30 MG TAB PO SCH (06:00)
[2022-08-07 06:58] LABS: Absolute Lymphocytes (CBC) 1.1 K/uL (0.7-4.9); Lymphocytes % 6.6 % (15.3-44.8); MCV 88.6 fL (80-100); MPV 6.6 fL (7.6-11.3); RBC Red Blood Cell Count 3.38 M/uL (3.86-4.86)
[2022-08-07] MEDS ORDERED: RED YEAST RICE 600 MG PO SCH (09:00)
[2022-08-07] MEDS ORDERED: HOME MED 1 EA UNK (Losartan Potassium [Cozaar] 100 MG Tablet) PO SCH (09:00)
[2022-08-07] MEDS ORDERED: HOME MED 1 EA UNK (Phentermine Hcl [Phentermine Hcl] 37.5 MG Tablet) PO SCH (09:00)
[2022-08-07] MEDS ORDERED: HOME MED 1 EA UNK (Omega-3/Dha/Epa/Fish Oil [Fish Oil 1,000 Mg Softgel] Capsule) PO SCH (09:00)
[2022-08-07] MEDS ORDERED: THYROID PORK 120 MG PO SCH (09:00)
[2022-08-07] MEDS ORDERED: LOSARTAN POTASSIUM 50 MG TABLET PO SCH (09:00)
[2022-08-07] MEDS ORDERED: MONTELUKAST 10 MG TAB PO SCH (09:00)
[2022-08-07] MEDS ORDERED: HOME MED 1 EA UNK (Multivit-Min/Iron/Folic/Lutein [Centrum Silver Women Tablet] Tablet) PO SCH (09:00)
[2022-08-07] MEDS ORDERED: MULTIVIT W/ MINERAL TAB PO SCH (09:00)
[2022-08-07] MEDS ORDERED: DOCOSAHEXANOIC AC/EPA 1000 MG PO SCH (09:00)
[2022-08-07 11:51] VITALS: O2SAT 96
[2022-08-07 11:54] VITALS: BP 117/67; TEMP 97.2
[2022-08-07] MEDS ORDERED: HOME MED 1 EA UNK (Estradiol [Estradiol] 42.5 GM Cream.Appl) VAG SCH (17:00)
--- NOTE | 2022-08-09 14:19 | OP ---
Date of Procedure: 08/06/2022 Surgeon: Stephanie Madden MD Applications Engineering Manager: Mattie Reese. Preoperative Diagnoses: Stage II posterior wall greater than anterior wall prolapsed wall, apical prolapse. Postoperative Diagnoses: Stage II posterior wall greater than anterior wall prolapsed wall, apical prolapse, and posterior enterocele. Procedures Performed: Vaginal bilateral sacrospinous ligament fixation, colpopexy with anterior repair using biologic graft augmentation, posterior wall posterior enterocele and perineal body repair, transobturator mid urethral sling, and cystoscopy. Estimated Blood Loss: 100. Urine Output: 150/ Fluids: 2700. Specimen: No specimens, complications. Drains: Urinary catheter, Schaefer. Implants: Tibbie dermis graft 8 x 6 and TVT-O. Findings: -1, -1, -4, 5.5, moderate, 7, 0, +1 na. Posterior enterocele was seen and there was a site-specific defect in the posterior wall. The attachment of the distal posterior wall rectovaginal septum and the perineal body, and the perineal body was also damaged and . Transferred to the recovery room in stable condition. Indications: The patient is a 71-year-old female with vaginal bulge defects and urinary incontinence. She was evaluated in the office and urodynamic tests were done. She had a bladder tumor on cystoscopy, so she was treated for bladder cancer. She subsequently came back to address her prolapse as well as overactive bladder. She was evaluated with urodynamics and she had ZEE. So we discussed about taking care of the prolapse. There was a pessary observation with help of physical therapy with pessary and surgery. She preferred to have surgical repair and after understanding the benefits and risks of laparoscopic and vaginal repair using graft that is either biologic or synthetic. All the risks, benefits and alternatives were reviewed with the patient, and she was consented and brought to the OR. Description Of Procedure: 2 g of Ancef was given. SCDs were placed. The patient was placed in supine position on operating table and once general anesthesia was given, she was placed in dorsal lithotomy position using Sanju stirrup. Lower abdomen, vulva, vagina, and perineum were prepped and draped in a sterile fashion. Schaefer was placed to drain the bladder and POP-Q was done and was as dictated above. The main defects were posterior wall followed by anterior wall defects. So without apical anterior repair, the posterior repair would not work as well, so proceeded with this. After the Schaefer was used to drain the bladder, was clamped and retracted superiorly. Allis was placed here then at the vault as well. In the midline, a 15 blade was used after dilute vasopressin was injected 20 cc to make an incision. This was extended superiorly and inferiorly to the UVJ on the anterior vaginal wall using Metzenbaum scissors. Dissection was carried proximally towards the paravesical space. Once I got into this,pararectal space was entered after palpating the ischial spine. The sacrospinous ligament was cleaned up and the white line was cleaned up as well. Prolene sutures with Capio were placed in the mid ligament, at least 2 cm medial to the ischial spine on the sacrospinous, and then, 2 cm lateral to the spine and anterior on the white line PDS suture placement done and held with clamp. The bladder was dissected all the way to the vault and the placed 2-0 Prolene sutures x3, 1 in the center, 2 on either side in the midline, at the apex careful not going through the bladder. These sutures were clamped and left in place. Then, anterior end of UVJ, 3 PDS sutures 2-0 were placed. Then, the biologic graft was taken and fashioned to 8 x 6 x5 graft. The markings were made for the sutures to be attached to the graft. Then, the graft was fashioned as trapezoid and brought back onto the field and the 3 Prolene sutures at the proximal central part were attached. Then, the 3 distal PDS sutures were anchored and all these were tied down. Then, the sacrospinous suture was placed with the mann stitch in both ends of the proximal end of the graft and these were pulled to understand the depth of vagina with the graft pulled up and then the paravaginal PDS suture site was decided on each side. Once the PDS sutures were hooked up, then sacrospinous sutures were tied down. 2-0 Vicryl suture was started on the vaginal epithelium, then the PDS sutures were tied down and trimmed. Continuous horizontal mattress suture was placed to close the anterior vaginal wall. The mid urethral area was picked up with 2 Allis clamps and bladder was drained first, then this was started. Injection with dilute vasopressin was done 10 cc towards each obturators space. After making an incision with a 15 blade, and entering past the fascia, the track was made towards the ipsilateral obturator space hugging the inferior pubic ramus. The obturators space was entered and track was created by opening up with Metzenbaum scissors on both sides. The spike was placed. Plastic dilator was passed with a needle exiting 2 cm lateral to the groin fold, 2 cm inferior to the adductor longus tendon in the medial thigh with a similar pass on the right and left. Then, mesh was tensioned with the help of an Allis in the center that held at least 0.5 cm of the graft. Then, plastic sheaths were pulled to tension the sling appropriately. Then, the sheaths were pulled out. Mesh was cut, flushed with the skin after opening the Allis clamp. There was appropriate tensioning that was without tenting and the graft was laid flat. Then, after irrigating with antibiotic solution, the incision was closed with the help of a continuous running 3-0 Vicryl suture in horizontal mattress fashion. Schaefer was removed, and cystoscopy was performed. Both ureteric orifices were well visualized. Good jets of urine from them and the bladder seen without any tumor or foreign body in the bladder neck. Bladder was recatheterized. Went down to the posterior repair. The remnants of the hymen were held. There was separation of the perineal body, as well as distal posterior wall defect. So, a triangular incision on the perineum was made from the hymen vestibule to the perineum after injecting with dilute vasopressin. Once the epithelium was taken out, the myrtle-shaped incision was made in the distal one third of the posterior wall. Once the epithelium was from the underlying connective tissues, then the dissection was performed to the lateral sulci on each side, and then, superiorly dissecting the posterior enterocele all the way to the apex, then inferiorly going towards the hymen, the rectovaginal septum was completely from the overlying tissues to assess the defect. This was a distal central defect from the perineal body. The perineal body was also weakened and widened. There was a mild defect at the superior most part. The reattachment to the apex was extremely difficult and this was placed down the tissue on tension, so plan was to close the posterior enterocele with a 3-0 Monocryl. This was done in pursestring suture. Once this was closed, then started to repair the perineal body with 2-0 Vicryl sutures, interrupted 2-0 Vicryl were placed x3 in 2 rows. Once the perineal body was reconstructed here, then 2-0 PDS was taken and the site was repaired like U starting in the left lateral sulcus and reattaching the defect by sewing fascial edge to fascial edge and reattaching the perineal body in the center and going to the other side. Then, another layer was done with 2-0 PDS was used to flatten out the posterior wall and plicated gently as this was lax. Then, there was no need for any trimming of the vaginal epithelium. This was extended down all the way to the perineal body, and then, sutured from [id number] from left side, 2-0 Vicryl was taken in continuous running horizontal mattress fashion, taken all the way to the right side. Then, the perineum was closed with the help of 2 further 2-0 Vicryl sutures to take the tension off and keep the perineal body intact, and then, 3-0 Vicryl in a subcutaneous and subcuticular fashion. Once this was done, there was excellent perineal body bulk. Posterior wall was completely supported. No evidence of any suture or foreign body. Vagina was packed after changing the gloves. Dermabond was placed on the groin incision. Schaefer was drained and then left in place attached to drainage bag. She was recovered from anesthesia and taken to PACU in a stable condition. She will stay overnight. Tomorrow morning packing will come out, voiding trial, and she will be discharged after that based on the results. PRASHANT/DIONY Voice ID: [id number] Report ID: [id number] SUNIL
== END 2022-08-07 15:40 | disposition home or self-care (01) ==
LOC: OR 08:42 → 2ND-WC 15:42
PROVIDERS: ADMIT Obstetrics & Gynecology; ATTEND Obstetrics & Gynecology
PROC: 0UUF0JZ Supplement Cul-de-sac with Synthetic Substitute, Open Approach (ICD-10-PCS; 2022-08-06)
PROC: 0JUC0JZ Supplement of Pelvic Region Subcutaneous Tissue and Fascia with Synthetic Substitute, Open Approach (ICD-10-PCS; 2022-08-06)
PROC: 0HQ9XZZ Repair Perineum Skin, External Approach (ICD-10-PCS; 2022-08-06)
PROC: 0TSD0ZZ Reposition Urethra, Open Approach (ICD-10-PCS; 2022-08-06)
PROC: 0USG7ZZ Reposition Vagina, Via Natural or Artificial Opening (ICD-10-PCS; principal; 2022-08-06 11:00)
DX: N99.3 Prolapse of vaginal vault after hysterectomy (principal); N39.3 Stress incontinence (female) (male); N32.81 Overactive bladder; Z85.51 Personal history of malignant neoplasm of bladder; Z20.822 Contact with and (suspected) exposure to COVID-19; I10 Essential (primary) hypertension
CPT/HCPCS: 57282; 57265; 57267 ×2; 57288; 87088; 85025 ×2; 81001; 87086; 80048; 36415 ×2; 86900; 86850; 85610; 86901; 85730; 87077; 87186; 94010; 87811; G0379; J2704; J2001; J2250; J3010 ×2; J1100; A4216; J7120 ×5; J2405; J0690 ×2; G0378 ×2

== ENCOUNTER 2022-09-29 08:28 | Day surgery (SDC) | payer OTHER ==
[2022-09-29 08:58] LABS: SARS-CoV-2 Antigen Rapid Res Negative (Negative)
[2022-09-29] MEDS ORDERED: CEFAZOLIN SODIUM 2 GM/VIAL ONE (09:29)
[2022-09-29] MEDS ORDERED: Ringers Lactate 1,000 ML IV ONE (09:29)
[2022-09-29] MEDS ORDERED: MIDAZOLAM HCL 2 MG/2 ML INJ ONE (11:04)
[2022-09-29] MEDS ORDERED: propofoL 200 MG/20 ML VIAL IV ONE (11:04)
[2022-09-29] MEDS ORDERED: LIDOCAINE 2% MPF 5 ML VIAL ONE (11:04)
[2022-09-29] MEDS ORDERED: ONDANSETRON 4 MG/2 ML VIAL ONE (11:04)
[2022-09-29] MEDS ORDERED: FENTANYL CITR 100 MCG/2 ML ONE (11:04)
[2022-09-29] MEDS ORDERED: LIDOCAINE 1% W/EPI 1:100,000 30 ML VIAL ONE (11:36)
[2022-09-29 15:18] VITALS: BP 146/79; TEMP 96.5; O2SAT 97
--- NOTE | 2022-09-30 14:47 | OP ---
Date of Procedure: 09/29/2022 Surgeon: Stephanie Madden MD Retail Attendant: No assistants. Preoperative Diagnosis: Stress urinary incontinence. Postoperative Diagnosis: Stress urinary incontinence. Procedures Performed: Cystourethroscopy and urethral bulking with Bulkamid. Complications: No complications. Drains: No drains. Condition: Stable. Estimated Blood Loss: Minimal. Anesthesia: MAC. Procedure In Detail: After informed consent was verified, the patient was taken back to the OR for u rethral bulking. The patient is a 71-year-old, status post pelvic floor reconstruction and endometri al sling; however, her stress urinary incontinence has been significant and severe and there was no u rethral hypermobility noted on pelvic exam, so she was brought in for urethral bulking for a possible diagnosis of ISD. After the consent was verified, she was taken back to the OR, placed in supine fashion on the operati ng table. Ancef was given. SCDs were placed. Time-out was done. After anesthesia was given, she w as placed in a dorsal lithotomy position. Vulva, vagina, and perineum prepped and draped in a steril e fashion. A 30-degree lens, normal saline, and cystoscope were used to enter the bladder. After fi lling it at least 300, the entire bladder was well visualized. Both ureteric orifices were patent. The trigone appeared to be normal. The area above the trigone, dome of the bladder, sidewalls were a ll closely inspected. Then, once the 30-degree lens was changed to a 70-degree to make sure that the re was no foreign body in the bladder or fistulous opening, there was no evidence of any diverticula or suspicious areas of inflammation. The scope was then changed to a 0-degree pediatric cystoscope a nd ureteroscopy was performed. No evidence of any erosion or trauma to the urethra. No evidence of any fistula either. The cystoscope was attached to the Bulkamid sheath. The urethra appeared to have a normal urethral e pithelium that was unremarkable, so I decided to use the Bulkamid as the filling agent. Once the nee dle and syringe were fitted together and primed, they were inserted through the injecting channel of the cystoscope sheath. The fluid was left running with a strong dribble. Once the internal meatus w as reached with the tip of the scope, then the needle was extended 2 cm. Then, the scope was pulled to the mid urethral area. The tip of the needle was at the urethral meatus. Then, the scope was sta bilized, needle pulled back and then in the mid urethral area, the injection was started, taking 0.5 cm of the needle under the urethral epithelium injection was done with Bulkamid 0.2 at 5 o'clock, sim ilar amount at 2 o'clock, 11 o'clock and 7 o'clock position. Total use was 0.7 to 0.8. There was an excellent ring around. The 2 o'clock injection was only 1 that appeared to be slightly more superfi cial. Everything was very symmetric and the canal appeared to be adequately occluded. The scope was removed carefully. Then, a 10-Montserratian catheter was passed through the urethra and removed. The lance ent was recovered from anesthesia and taken to PACU in stable condition. The patient tolerated the p rocedure well in the PACU. She had no leakage and was able to empty. PRASHANT/DIONY Voice ID: [id number] Report ID: [id number]
== END 2022-09-29 14:13 | disposition home or self-care (01) ==
LOC: OR 08:28
PROVIDERS: ATTEND Obstetrics & Gynecology
PROC: 0TVD8ZZ Restriction of Urethra, Via Natural or Artificial Opening Endoscopic (ICD-10-PCS; principal; 2022-09-29 11:30)
DX: N39.3 Stress incontinence (female) (male) (principal); Z20.822 Contact with and (suspected) exposure to COVID-19
CPT/HCPCS: 36415; 87811; 51715; J2704; J2001; J2250; J3010; J7120; J2405; L8606

== ENCOUNTER 2022-11-24 06:30 | Day surgery (SDC) | payer OTHER ==
[2022-11-24] MEDS ORDERED: Ringers Lactate 1,000 ML IV ONE (06:56)
[2022-11-24] MEDS ORDERED: LIDOCAINE 1% W/EPI 1:100,000 50 ML MDV ONE (06:58)
[2022-11-24] MEDS ORDERED: CEFAZOLIN 3 GM in NA CHLORIDE 0.9% 100 ML IVPB SCH (07:00)
[2022-11-24] MEDS ORDERED: FENTANYL CITR 100 MCG/2 ML ONE (07:18)
[2022-11-24] MEDS ORDERED: propofoL 200 MG/20 ML VIAL IV ONE (07:19)
[2022-11-24] MEDS ORDERED: MIDAZOLAM HCL 2 MG/2 ML INJ ONE (07:19)
[2022-11-24] MEDS ORDERED: LIDOCAINE 2% MPF 5 ML VIAL ONE (07:19)
[2022-11-24] MEDS ORDERED: ONDANSETRON 4 MG/2 ML VIAL ONE (07:19)
[2022-11-24] MEDS ORDERED: dexAMETHasone 4 MG/ML VIAL ONE (08:00)
[2022-11-24] MEDS ORDERED: TIZANIDINE 4 MG TABLET PO PRN (08:39)
[2022-11-24] MEDS ORDERED: IBUPROFEN 200 MG TAB PO PRN (08:39)
--- NOTE | 2022-11-24 08:54 | P.BOP ---
Preoperative diagnosis: ZEE persistent, s/p sling, and 1 priro bulking, ISD Postoperative diagnosis: same Primary procedure: Urethral bulking an dcysto Estimated blood loss: min Specimen: none Findings: bulking agent in place 10-2 o clock ACW, injected 4 spots Anesthesia: General Complications: None Transferred to: Recovery Room Condition: Good
[2022-11-24] MEDS ORDERED: MONTELUKAST 10 MG TAB PO SCH (09:00)
[2022-11-24] MEDS ORDERED: GLYCOPYRROLATE 1 MG PO SCH (09:00)
[2022-11-24] MEDS ORDERED: HOME MED 1 EA UNK (Omega-3/Dha/Epa/Fish Oil [Fish Oil 1,000 Mg Softgel] Capsule) PO SCH (09:00)
[2022-11-24] MEDS ORDERED: RED YEAST RICE 600 MG PO SCH (09:00)
[2022-11-24] MEDS ORDERED: THYROID PORK 120 MG PO SCH (09:00)
[2022-11-24] MEDS ORDERED: HOME MED 1 EA UNK (Multivit-Min/Iron/Folic/Lutein [Centrum Silver Women Tablet] Tablet) PO SCH (09:00)
[2022-11-24 09:16] VITALS: TEMP 97
[2022-11-24 10:05] VITALS: BP 146/75; O2SAT 97
--- NOTE | 2022-11-24 13:05 | OP ---
Date of Procedure: 11/24/2022 Surgeon: Stephanie Madden MD Product Builder: No assistants. Preoperative Diagnosis: Persistent stress urinary incontinence. Patient is status post sling and on e round of Bulkamid. 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 Postoperative Diagnosis: Persistent stress urinary incontinence. Patient is status post sling and o ne round of Bulkamid. 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 Procedures Performed: Urethral bulking with Bulkamid and cystoscopy. Complications: No complications. Drains: No drains. Specimens: No specimens. Condition: Stable. Findings: Bladder appears to be unremarkable. Cystoscoped with the pediatric cystoscope on the uret hra. The anterior from 10 to 2 o'clock appears to have good bulking agent retention, posterior two-t hirds, especially the angles as well as the posterior wall do not have a lot of the bulking agent boston t is evident in the mid urethra, so 1.4 mL was injected. Brief History And Physical: Patient is a 71-year-old lady with prolapse and incontinence that was mi xed by mostly stress incontinence postoperatively despite transobturator midurethral sling. So she w as evaluated to rule out a fistula and this was negative and found to be directly from the urethra an d counseled her about urethral bulking versus the retropubic sling. Wanted to proceed with bulking a nd she was counseled at the first visit itself that this could in 40% of the cases need a second inje ction. She has over 50% improvement in her ZEE after the first bulking procedure. She is back today for a second injection. Description Of The Procedure: After informed consent was verified, she was taken back to OR, placed in supine fashion on the operating table. General anesthesia was given. She was placed in dorsal li thotomy position. Vulva, vagina, and perineum were prepped and draped in a sterile fashion. A pedia tric cystoscope attached to the tubing for the bulking inflow and outflow with the outlet for inserti on of the needle was attached to the cystoscope and using normal saline as distention medium in 0 deg ree scope, urethra was entered after good visualization into the bladder. The base of the bladder, a angelito above the bladder where she had a previous bladder tumor were all visualized and unremarkable. T he bladder was fully drained and then cystoscope was introduced with the saline at strong dribble, en tered the midurethral area, inserted the needle, and keeping the tip of the scope at the internal debbie tus to the needle extended 2 cm into the bladder. Then, the whole apparatus pulled back into the mid urethral area, which is the location which I can see the previous bulking agents set. The injection was started at 4 o'clock position, between 4 and 5 o'clock and between 3 and 4 o'clock. Two injecti ons were done similarly between 7 and 8, and 8 and 9 o'clock. Two other injections were done: Full amounts were given 1.4 mL in total. Excellent apposition. Valsalva was done with the assistance of anesthesia. There was no evidence of any leakage. The scope was pulled back. Procedure was complet ed. Patient was cleaned up, recovered from anesthesia and taken to PACU in a stable condition. She will follow up with a voiding trial before she leaves today and then with me by her preexisting posto p appointment. Plan will be to use a 12-Swedish Schaefer if she is unable to void postoperatively. PRASHANT/DIONY Voice ID: [id number] Report ID: [id number]
[2022-11-24] MEDS ORDERED: HOME MED 1 EA UNK (Losartan Potassium [Cozaar] 100 MG Tablet) PO SCH (21:00)
[2022-11-25] MEDS ORDERED: HOME MED 1 EA UNK (Estradiol [Estradiol] 42.5 GM Cream.Appl) VG SCH (17:00)
== END 2022-11-24 10:19 | disposition home or self-care (01) ==
LOC: OR 06:30
PROVIDERS: ATTEND Obstetrics & Gynecology
PROC: 0TVD8ZZ Restriction of Urethra, Via Natural or Artificial Opening Endoscopic (ICD-10-PCS; principal; 2022-11-24 07:30)
DX: N39.3 Stress incontinence (female) (male) (principal); I10 Essential (primary) hypertension; Z85.51 Personal history of malignant neoplasm of bladder; E78.5 Hyperlipidemia, unspecified
CPT/HCPCS: 51715; J2704; J1100; J2001; J2250; J3010; J7120; J2405; J0690; L8606